=== PATIENT | male | born 1950 | race African-American/Black ===

== ENCOUNTER 2020-08-18 08:24 | Outpatient (CLI) | payer MEDICARE, SELFPAY ==
--- NOTE | 2020-09-03 14:17 | WPDHOMESLEEP ---
Sleep Study - Home Unattended Date of Study: 08/18/20 Ordering Provider: Pasquale Riggins PA-C Interpreting Provider: Emma Bobby MD [place] Sleep Study Type: Apnea Link Air Height: 1.7 m Weight: 86.183 kg Body Mass Index: 29.7 Neck Circumference (inches): 13.5 Pomaria: 5 Reason for Sleep Study daytime fatigue, shallow breathing at night, multiple nighttime awakenings Sleep History Yonathan Pineda is a 70-year-old man who frequently awakens from sleep feeling short of breath. He rarely awakens at night with heartburn, belching or coughing. He frequently snores. He rarely snores loudly enough that others complain about it. He does not have trouble sleeping with a cold. He occasionally wakes up gasping for breath during the night. He occasionally has breathing problems at night observed by others. He occasionally sweats excessively night. He occasionally notices his heart pounding or beating irregularly night. He frequently falls asleep during the day, rarely falls asleep involuntarily and never falls asleep while driving. He does not have loss of muscle tone with strong emotion. He does not have daytime difficulties due to excessive sleepiness. He rarely feels paralyzed on waking or falling asleep. He occasionally has vivid dreamlike scenes upon awakening or falling asleep. He frequently feels afraid to go to sleep. He rarely has nightmares. He occasionally remembers his dreams. He frequently has racing thoughts. He occasionally feels sad or depressed. Rarely he has anxiety. He rarely has muscular tension. He occasionally notices parts of his body jerking, he occasionally kicks at night and occasionally has crawling and aching feelings in his legs. He occasionally has leg pain at night. He rarely has morning jaw pain. He does not grind his teeth during sleep. He rarely is bothered by pain during the day, rarely awakened by pain at night. He occasionally wakes up feeling stiff in the morning. He rarely wakes up with sore achy muscles. He occasionally wakes up with pain in the neck and spine. He has palpitations, dizziness, and sexual problems. He reports a 15 lb weight loss in the last year. Normal bedtime is 10:00 p.m. falling asleep within 15 minutes waking 4-5 times at night for on average 10-20 minutes. He does not identify any particular problem that wakes him. He does not mention nocturia. He normally wakes up 5-530 a.m.. On the weekends his hours are similar although he may sleep until 6:00 a.m.. He takes naps in the afternoon. A short nap 10 or 15 minutes might be refreshing. He usually feels drowsy in the morning for 1 hour or longer. Habits: Never smoked tobacco. [facility] Past Medical History Medical History (Updated 09/03/20 @ 14:28 by Emma Bobby MD) BPH (benign prostatic hyperplasia) Erectile dysfunction Fatty liver GERD (gastroesophageal reflux disease) Hearing loss History of prostate cancer Treated with brachytherapy Hypercholesterolemia Hypertension Hypothyroidism (acquired) Pre-diabetes Pre-diabetes Vitamin D deficiency Family History Family History (Updated 09/03/20 @ 14:28 by Emma Bobby MD) Father Diabetes mellitus Mother Hypertension Son Obstructive sleep apnea Social History Social History Smoking status: Never smoker Second hand tobacco smoke exposure: No Alcohol intake: current Substance use: never Substance use type: does not use Living arrangements: with family Gender identity (if verbalized by the patient): Male Spiritual care concerns: No Medications Home Medications Medication Instructions Recorded Confirmed Type nmxdnnzl-iom-pxjyf acid 300 1 tablet PO DAILY 07/05/19 08/25/20 History mcg-lycopene 600 mcg-lutein 300 mcg tablet sildenafil 25 mg tablet 25 mg PO DAILY PRN 07/05/19 08/25/20 History atorvastatin 20 mg tablet 20 mg PO DAILY #90 tablet 11/20/1908/12
[2020-09-03 14:33] VITALS: BMI 29.7
== END 2020-08-19 07:59 | disposition home or self-care (01) ==
PROVIDERS: PCP Physician Assistant; Visit Provider Physician Assistant
DX: G47.10 Hypersomnia, unspecified (principal)
CPT/HCPCS: 95806

== ENCOUNTER → 2020-08-23 00:13 | Outpatient (CLI) | payer MEDICARE, SELFPAY ==
[2020-08-23 17:56] LABS: SARS-CoV-2 RNA PCR Negative
== END ==
PROVIDERS: PCP Physician Assistant; Visit Provider Internal Medicine Gastroenterology
DX: Z01.812 Encounter for preprocedural laboratory examination (principal); Z20.822 Contact with and (suspected) exposure to COVID-19
CPT/HCPCS: C9803; U0003; U0005

== ENCOUNTER 2020-08-27 01:16 | Day surgery (SDC) | payer MEDICARE, SELFPAY ==
[2020-08-25 10:53] VITALS: BMI 30.6
--- NOTE | 2020-08-26 13:38 | WPDANESEPPF ---
Anes - Initial Pre Proc Eval Procedure: Operation Date: 08/27/20 11:30 Proposed Procedures p Screening Colonoscopy - Hayden Zhong DO Date/Time: 08/26/20 13:38 Surgeon: Hayden Zhong DO Pre Op Diagnosis: hx of colon polyps Patient Data Age: 70 Gender: M Height: 1.68 m Weight: 86 kg Allergies Allergy/AdvReac Type Severity Reaction Status Date / Time No Known Allergies Allergy Unknown Verified 08/25/20 10:49 Home Medications Medication Instructions Recorded Confirmed Type rlprxdya-ahv-xhxpf acid 300 1 tablet PO DAILY 07/05/19 08/25/20 History mcg-lycopene 600 mcg-lutein 300 mcg tablet sildenafil 25 mg tablet 25 mg PO DAILY PRN 07/05/19 08/25/20 History atorvastatin 20 mg tablet 20 mg PO DAILY #90 tablet 11/20/19 08/25/20 Rx lisinopril 20 1 tablet PO DAILY #90 tablet 05/22/20 08/25/20 Rx mg-hydrochlorothiazide 25 mg tablet metoprolol succinate 25 mg 25 mg PO DAILY #90 tablet 05/22/20 08/27/20 Rx tablet,extended release 24 hr levothyroxine 25 mcg tablet 25 mcg PO DAILY #90 tablet 06/20/20 08/25/20 Rx metformin 500 mg tablet,extended 500 mg PO BID #180 tablet 06/20/20 08/25/20 Rx release 24 hr Patient hx anesthesia problems: none Family hx anesthesia problems: none PMFSH Past Medical History Medical History (Updated 06/20/20 @ 10:57 by Pasquale Riggins PA-C) BPH (benign prostatic hyperplasia) Erectile dysfunction Fatty liver GERD (gastroesophageal reflux disease) Hearing loss History of prostate cancer Hypercholesterolemia Hypertension Pre-diabetes Pre-diabetes Vitamin D deficiency Family History Family History Father Diabetes mellitus Mother Hypertension Social History Social History Smoking status: Never smoker Second hand tobacco smoke exposure: No Alcohol intake: current Substance use: never Substance use type: does not use Living arrangements: with family Gender identity (if verbalized by the patient): Male Spiritual care concerns: No Anes - Eval Final PreProcedure Day of Procedure 08/26/20 13:38 Patient weight: obese Heart: regular rate and rhythm Lungs: clear to auscultation and normal air movement Airway: Mallampati scale class II Neurological: alert and oriented Last oral intake: >/= 8 hours ASA classification: III Emergent: no Anesthetic plan: proceed Anesthesia type and monitoring: general GIVS and standard monitoring Informed Consent: The patient's anesthetic plan and its attendant risks and benefits were discussed with the patient/family/POA. Questions were solicited and answers provided to the satisfaction of the patient/family/POA.
[2020-08-27 10:12] VITALS: BP 159/65; PULSE 55; RESP 18; TEMP 36.1; O2SAT 98; BMI 30.8
[2020-08-27 10:34] LABS: Glucose Point of Care 104 mg/dl (65-105)
[2020-08-27] MEDS: LACTATED RINGERS 1,000 ML 150 ML IV CONT (10:42)
--- NOTE | 2020-08-27 11:51 | WPDGICN ---
GI Consult Note Consult date/time: 08/27/20 11:51 HPI: Reason for visit is colonoscopy. This very pleasant gentleman seen in consultation at request of the primary. Impression: Screening in surveillance colonoscopy. Patient's history adenomatous colon polyps. BPH. Prostatic cancer status post brachytherapy. HLD. HTN. GERD. Vitamin-D deficiency. EGD. Pre diabetes. NAFLD. Recommendation: Colonoscopy. History: This very pleasant gentleman's here for screening and surveillance colonoscopy. His history adenomatous colon polyps. GI review systems negative. Physical examination: General: very pleasant patient in no acute distress. HEENT: Head was normocephalic sclerae is clear mouth without masses neck was supple. Heart: Rate rhythm regular without S3 or S4. Lungs: CTA. Abdomen: Soft with no guarding or rigidity. Bowel sounds were active. Neurologic: Cranial nerves 2 through 12 intact. No focal defects. No clonus. Musculoskeletal system: Revealed no joint tenderness or swelling no muscle atrophy. Extremities: Reveal no significant edema. Skin: Warm and dry with normal turgor. Mental status: intact. Patient is alert and oriented. Review of Systems Review of Systems: All systems reviewed & are unremarkable except as noted in HPI and below PMFSH Past Medical History Medical History (Updated 06/20/20 @ 10:57 by Pasquale Riggins PA-C) BPH (benign prostatic hyperplasia) Erectile dysfunction Fatty liver GERD (gastroesophageal reflux disease) Hearing loss History of prostate cancer Hypercholesterolemia Hypertension Pre-diabetes Pre-diabetes Vitamin D deficiency Family History Family History Father Diabetes mellitus Mother Hypertension Social History Social History Smoking status: Never smoker Second hand tobacco smoke exposure: No Alcohol intake: current Substance use: never Substance use type: does not use Living arrangements: with family Gender identity (if verbalized by the patient): Male Spiritual care concerns: No Meds Home Medications and Allergies Home Medications Medication Instructions Recorded Confirmed Type ulcqaatd-lsd-ipcmr acid 300 1 tablet PO DAILY 07/05/19 08/25/20 History mcg-lycopene 600 mcg-lutein 300 mcg tablet sildenafil 25 mg tablet 25 mg PO DAILY PRN 07/05/19 08/25/20 History atorvastatin 20 mg tablet 20 mg PO DAILY #90 tablet 11/20/19 08/25/20 Rx lisinopril 20 1 tablet PO DAILY #90 tablet 05/22/20 08/25/20 Rx mg-hydrochlorothiazide 25 mg tablet metoprolol succinate 25 mg 25 mg PO DAILY #90 tablet 05/22/20 08/27/20 Rx tablet,extended release 24 hr levothyroxine 25 mcg tablet 25 mcg PO DAILY #90 tablet 06/20/20 08/25/20 Rx metformin 500 mg tablet,extended 500 mg PO BID #180 tablet 06/20/20 08/25/20 Rx release 24 hr Allergies Allergy/AdvReac Type Severity Reaction Status Date / Time No Known Allergies Allergy Unknown Verified 08/25/20 10:49 Vital Signs Vital Signs - 24 hr 08/27/20 10:12 Temperature 36.1 C L Pulse Rate 55 L Respiratory Rate 18 Blood Pressure 159/65 H Pulse Oximetry 98
[2020-08-27 12:15] VITALS: BP 126/75; PULSE 68; RESP 18; O2SAT 98
[2020-08-27 12:25] VITALS: BP 126/66; PULSE 51; RESP 16; O2SAT 98
[2020-08-27 12:35] VITALS: BP 124/64; PULSE 59; RESP 18; O2SAT 98
--- NOTE | 2020-08-27 12:48 | SUR.PHASEII ---
08/27/20 @ 1248 patient is ready for discharge=waiting for Dr Zhong to speak with him prior to discharge.
== END 2020-08-27 13:15 | disposition home or self-care (01) ==
PROVIDERS: PCP Physician Assistant; Visit Provider Internal Medicine Gastroenterology
PROC: 0DJD8ZZ Inspection of Lower Intestinal Tract, Via Natural or Artificial Opening Endoscopic (ICD-10-PCS; CPT 45378; principal; 2020-08-27 11:30)
DX: Z12.11 Encounter for screening for malignant neoplasm of colon (principal); K63.5 Polyp of colon; K64.8 Other hemorrhoids; I10 Essential (primary) hypertension; E78.5 Hyperlipidemia, unspecified; K21.9 Gastro-esophageal reflux disease without esophagitis; R73.03 Prediabetes; K76.0 Fatty (change of) liver, not elsewhere classified; E55.9 Vitamin D deficiency, unspecified; Z85.46 Personal history of malignant neoplasm of prostate; Z79.84 Long term (current) use of oral hypoglycemic drugs; E66.9 Obesity, unspecified; Z68.30 Body mass index [BMI] 30.0-30.9, adult
CPT/HCPCS: 45380; 82948; 88305; C9803; J2704; J7120; U0003; U0005

== ENCOUNTER 2022-07-02 10:24 | Outpatient (CLI) | payer MEDICARE, SELFPAY ==
--- NOTE | ~2022-07-02 | XR_ITS ---
EXAMINATION: XR chest 2V 07/02/2022 10:45 INDICATION: Shortness of breath and chest pain PROCEDURE: 2 view chest COMPARISON: Comparison to multiple prior studies sequentially, with oldest reviewed study dated 07/2013. FINDINGS: The lungs are clear. The cardiomediastinal silhouette is within normal limits. There are no pleural effusions. There is no pneumothorax suspected. There are calcified nodules bilaterally, consistent with chronic granulomatous disease. IMPRESSION: 1: NO ACUTE CARDIOPULMONARY DISEASE. Reviewed, dictated and finalized at location A.
== END 2022-07-02 10:25 | disposition home or self-care (01) ==
LOC: ANHIMG 10:31
PROVIDERS: PCP Family Medicine; Visit Provider Physician Assistant
DX: R06.02 Shortness of breath (principal)
CPT/HCPCS: 71046

== ENCOUNTER 2022-12-16 23:37 | Inpatient (IN) | payer MEDICARE, SELFPAY ==
--- NOTE | ~2022-12-16 | CT_ITS ---
EXAMINATION: CT abdomen pelvis w con DATE: 12/19/2022 11:29 INDICATION: Neoplastic gastric ulcer. TECHNIQUE: Computed tomography (CT) of the abdomen and pelvis was performed with 100 mL Omnipaque 350 intravenous contrast. Automated exposure control and iterative reconstruction technique were employe d. The dose-length product was 860.63 mGy-cm. COMPARISON: None. FINDINGS: The visualized portions of the lung bases demonstrate mild atelectasis. Calcified pulmonary nodules and calcified hilar lymph nodes are consistent with old granulomatous disease. No pleural ef fusion. The heart size is normal. There are coronary artery calcifications. No pericardial effusion. Calcifications in the liver and spleen are consistent with old granulomatous disease. The gallbladder is contracted. The pancreas and adrenal glands are normal. There is a 1.8 cm mass of the left kidney containing fat, consistent with an angiomyolipoma. There are cysts in the kidneys measuring up to 3. 0 cm on the left. There is calcified atherosclerosis of the aorta and many of the other arteries. The prostate is mildly enlarged. There are brachytherapy seeds in the prostate. There is diverticulosis of the colon without evidence of diverticulitis. There are no dilated loops of bowel. The appendix is normal. There is a 6.2 cm mass in the body and fundus of the stomach. There is mild thoracic and lum bar spondylosis. IMPRESSION: 1. 6.2 cm mass in the body and fundus of the stomach, which may be adenocarcinoma or gastrointestinal stromal tumor. Correlate with biopsy results. Reviewed, dictated and finalized at location A. IMPRESSION: 1. 6.2 cm mass in the body and fundus of the stomach, which may be adenocarcino ma or gastrointestinal stromal tumor. Correlate with biopsy results.
[2022-12-16 23:46] VITALS: BP 118/80; PULSE 66; O2SAT 100
[2022-12-16 23:47] VITALS: PULSE 66; O2SAT 100
[2022-12-17] VITALS (61 sets, daily range): BP systolic 91–141; BP diastolic 47–74; PULSE 36–94; RESP 14–24; TEMP 36.4–36.8; O2SAT 97–100
--- NOTE | 2022-12-17 00:06 | ECG_ITS ---
Measurements Intervals [place] Rate: 66 P: 43 LA: 169 QRS: 16 QRSD: 92 T: 23 QT: 408 QTc: 428 Interpretive Statements SINUS RHYTHM NO PREVIOUS ECG AVAILABLE FOR COMPARISON Electronically Signed On 12-17-2022 14:23:00 CDT by Modesto Perez M.D.
[2022-12-17 00:18] LABS: Basophils Percent Auto 0.4 % (0.2-1.2); Eosinophils Absolute Auto 0.1 K/mm3 (0-0.3); Eosinophils Percent Auto 1.1 % (0-4.4); Hematocrit 36.7 % (42.0-52.0); Hemoglobin 11.4 g/dL (14.0-18.0); Immature Granulocyte Absolute 0.07 K/mm3 (0.00-0.031); Immature Granulocyte Percent A 0.7 % (0-0.5); Lymphocytes Absolute Auto 3.01 K/mm3 (0.9-3.2); Lymphocytes Percent Auto 28.2 % (18.3-44.2); Mean Corpuscular HGB Conc 31.1 g/dl (32-36); Mean Corpuscular Volume 86.8 fl (80-100); Mean Platelet Volume 12.4 fl (7.4-10.4); Monocytes Absolute Auto 0.7 K/mm3 (0.1-0.6); Monocytes Percent Auto 6.5 % (2.6-8.5); Neutrophils Absolute Auto 6.8 K/mm3 (1.3-6.7); Neutrophils Percent Auto 63.1 % (45.5-73.1); Platelet Count Result 277 k/mm3 (150-375); Red Blood Count 4.23 M/mm3 (4.6-6.20); Red Cell Distribution Width 14.7 % (11.5-14.5); White Blood Count 10.7 K/mm3 (4.5-10.0)
--- NOTE | 2022-12-17 00:19 | ED.GIBLEED ---
HPI - GI Bleed General Chief complaint: GI Bleed <BROCK Ohara Last Filed: 12/20/22 09:18> Stated complaint: gi bleed <BROCK Ohara Last Filed: 12/20/22 09:18> Time Seen by Provider: 12/17/22 00:06 <BROCK Ohara Last Filed: 12/20/22 09:18> Source: patient <BROCK Ohara Last Filed: 12/20/22 09:18> Mode of arrival: ambulatory <BROCK Ohara Last Filed: 12/20/22 09:18> Limitations: no limitations <BROCK Ohara Last Filed: 12/20/22 09:18> History of Present Illness HPI Narrative: This is a 72 year old male that presents to the ER for coffee ground emesis tonight. Reports history of previous similar episode when he was younger due to ulcers. He no longer takes any medications for ulcers. He is no on any blood thinners. Denies abdominal pain. <BROCK Ohara Last Filed: 12/20/22 09:18> Related Data Home medications: Home Medications Medication Instructions Recorded Confirmed wbojsyld-zr-yugub 300 mcg-K 60 1 tablet PO DAILY 07/05/19 12/17/22 mcg-lycop 600 mcg-lutein 300 mcg tablet (Men 50 Plus Multivitamin) sildenafil 25 mg tablet 25 mg PO DAILY PRN Sexual Activity 07/05/19 12/17/22 albuterol sulfate 90 mcg/actuation 1 inh inhalation Q4H PRN chest 12/17/22 12/17/22 aerosol inhaler tightness <BROCK Ohara Last Filed: 12/20/22 09:18> Allergies/Adverse reactions: Allergies Allergy/AdvReac Type Severity Reaction Status Date / Time No Known Allergies Allergy Unknown Verified 12/17/22 08:22 <BROCK Ohara Last Filed: 12/20/22 09:18> Review of Systems Review of Systems: CONSTITUTIONAL: Denies fever GASTROINTESTINAL: Reports nausea and vomiting. Denies abdominal pain <BROCK Ohara Last Filed: 12/20/22 09:18> All systems reviewed & are unremarkable except as noted in HPI and below <Odilia Krishna PA-C - Last Filed: 12/20/22 09:18> [facility] Past Medical History Medical History: Medical History BPH (benign prostatic hyperplasia) Erectile dysfunction Fatty liver GERD (gastroesophageal reflux disease) Hearing loss History of prostate cancer Treated with brachytherapy Hypercholesterolemia Hypertension Hypothyroidism (acquired) Pre-diabetes Pre-diabetes Vitamin D deficiency <Odilia Krishna PA-C - Last Filed: 12/20/22 09:18> Family History Family History: Family History Father Diabetes mellitus Mother Hypertension Son Obstructive sleep apnea <Odilia Krishna PA-C - Last Filed: 12/20/22 09:18> Social History Social History: Social History Social History: Lives at home with , she is ARGELIA. They have kids and grandkids locally. Smoking status: Never smoker Second hand tobacco smoke exposure: No Alcohol intake: never Alcohol use details: consumes 1 beer yearly Substance use: never Substance use type: does not use Lack of Transportation: No Lack of Food: Never True Current Housing: I Have Housing Concerned About Future Housing: No Difficulty Paying Gas/Electric Bills: No Difficulty Paying for Meds: No Currently Unemployed: No Education: Bachelor's Degree Difficulty w/ Childcare or Family Care: No Living arrangements: with family Occupation/Education: retired Gender identity (if verbalized by the patient): Male Spiritual care concerns: No <Odilia Krishna PA-C - Last Filed: 12/20/22 09:18> Exam Narrative: GENERAL: Well-appearing, well-nourished, and in no acute distress. HEAD: Normocephalic, atraumatic. EYES: EOMI. CHEST: Clear to auscultation. No respiratory distress. No wheezes rales or rhonchi HEART: Regular rate and rhythm. No murmur heard. Normal peripheral pulses. ABDOMEN: Soft, nontender, nondisten
[2022-12-17 00:31] LABS: INR 1.1; Prothrombin Time 14.6 Seconds (11.1-14.7)
[2022-12-17 00:32] LABS: Partial Thromboplastin Time 28.3 SECONDS (22.3-36.8)
[2022-12-17] MEDS: PANTOPRAZOLE SODIUM IV 40 MG VIAL 80 MG IV PUSH (00:32)
[2022-12-17] MEDS: ONDANSETRON INJ 4 MG/2 ML VIAL IV PUSH (00:33)
[2022-12-17 00:52] LABS: Alanine Aminotransferase 24 U/L (6-50); Albumin Level 4.2 g/dL (3.5-5.1); Alkaline Phosphatase 80 U/L (38-126); Anion Gap 13 mmol/L (8-16); Aspartate Amino Transferase 32 U/L (17-59); Bilirubin,Total 0.6 mg/dL (0.2-1.3); Blood Urea Nitrogen 27 mg/dL (9-20); Calcium 9.2 mg/dL (8.4-10.2); Carbon Dioxide 23 mmol/L (22-30); Chloride 100 mmol/L (98-107); Estimated CRCL calculation 57 ml/min; Estimated Glomerular Filt Rate > 60; Glucose 170 mg/dL (65-110); Potassium 3.5 mmol/L (3.4-5.0); Sodium 136 mmol/L (137-145)
[2022-12-17] MEDS: PROCHLORPERAZINE EDISYLATE 10 MG/2 ML VIAL IV PUSH (01:44)
[2022-12-17] MEDS: SODIUM CHLORIDE 0.9% IV 1,000 ML 999 ML IV CONT (01:44)
[2022-12-17 04:35] LABS: Hematocrit 32.6 % (42.0-52.0); Hemoglobin 10.2 g/dL (14.0-18.0)
--- NOTE | 2022-12-17 07:10 | WPDGICN ---
Assessment and Plan Assessment and plan (1) Acute upper GI bleed: Code(s): K92.2 - Gastrointestinal hemorrhage, unspecified Status: Acute Assessment and Plan: because of hematemesis he likely has peptic ulcer disease or other bleeding problems in the esophagus or stomach. EGD will be done later today (2) GERD (gastroesophageal reflux disease): Code(s): K21.9 - Gastro-esophageal reflux disease without esophagitis Status: Acute Assessment and Plan: he had been on Tagamet for while years ago but is not on any acid reducing medications now. He occasionally gets heartburn GI Consult Note Consult date/time: 12/17/22 07:10 HPI: Yonathan Pineda is a 72 year old male Came in last night because of hematemesis. He states that he had in her LEs today afternoon about 4. He took his medications. He went to bed and woke up feeling distended. He had no pain. Then he vomited and noted that it looked like undigested food and coffee-ground material. He added that he has had dark stools almost black for the last year 3 days. She has a history of having an ulcer when he was in his 30s and recalls taking Tagamet for about 10 years. He is not anticoagulated. He had a colonoscopy here about 2 years ago which was unremarkable per Review of Systems Review of Systems: All systems reviewed & are unremarkable except as noted in HPI and below PMFSH Past Medical History Medical History BPH (benign prostatic hyperplasia) Erectile dysfunction Fatty liver GERD (gastroesophageal reflux disease) Hearing loss History of prostate cancer Treated with brachytherapy Hypercholesterolemia Hypertension Hypothyroidism (acquired) Pre-diabetes Pre-diabetes Vitamin D deficiency Family History Family History Father Diabetes mellitus Mother Hypertension Son Obstructive sleep apnea Social History Social History Social History: Lives at home with , she is POA. They have kids and grandkids locally. Smoking status: Never smoker Second hand tobacco smoke exposure: No Alcohol intake: current Alcohol use details: consumes 1 beer yearly Substance use: never Substance use type: does not use Lack of Transportation: No Lack of Food: Never True Current Housing: I Have Housing Concerned About Future Housing: No Difficulty Paying Gas/Electric Bills: No Difficulty Paying for Meds: No Currently Unemployed: No Difficulty w/ Childcare or Family Care: No Living arrangements: with family Occupation/Education: retired Gender identity (if verbalized by the patient): Male Spiritual care concerns: No Meds Home Medications and Allergies Home Medications Medication Instructions Recorded Confirmed Type oxoxjfne-en-uwcgj 300 mcg-K 60 1 tablet PO DAILY 07/05/19 07/02/22 History mcg-lycop 600 mcg-lutein 300 mcg tablet (Men 50 Plus Multivitamin) sildenafil 25 mg tablet 25 mg PO DAILY PRN Sexual Activity 07/05/19 07/02/22 History lisinopril 20 See Rx Instructions .Route 05/02/22 07/02/22 Rx mg-hydrochlorothiazide 25 mg tablet .COMPLEX #90 tabs metoprolol succinate 25 mg See Rx Instructions .Route 05/02/22 07/02/22 Rx tablet,extended release 24 hr .COMPLEX #90 tabs albuterol sulfate 90 mcg/actuation 1 inh inhalation Q4H #8.5 grams 08/08/22 Rx aerosol inhaler atorvastatin 20 mg tablet See Rx Instructions .Route 09/29/22 Rx .COMPLEX #90 tabs levothyroxine 25 mcg tablet See Rx Instructions .Route 11/08/22 Rx .COMPLEX #100 tabs metformin 500 mg tablet,extended See Rx Instructions .Route 11/08/22 Rx release 24 hr .COMPLEX #200 tabs Allergies Allergy/AdvReac Type Severity Reaction Status Date / Time No Known Allergies Allergy Unknown Verified 07/02/22 09:11 Vital Signs Vital Signs - 24 h
--- NOTE | 2022-12-17 07:45 | ADMGEN ---
This patient, Yonathan Pineda, was admitted to 2 Medical Room 242-. Patient/family oriented to hospital policies and general routines including ID bracelet, bed and alarms, visiting hours, pain management, procedures, bathroom and other care routines, personal items, smoking policy, room service/diet, and visiting hours. Information on how to activate the Rapid Response Team has been discussed. Patient/Family are encouraged to report perceived risks to care and to ask questions if they do not understand what they are told or what they should do.
[2022-12-17] MEDS: PANTOPRAZOLE SODIUM IV 40 MG VIAL IV PUSH ×2 (09:05→20:28)
--- NOTE | 2022-12-17 09:25 | PM.IMHP ---
H&P: HPI History of Present Illness Date/Time: 12/17/22 09:25 Chief Complaint: Coffee-ground emesis Narrative: 72-year-old male with history of peptic ulcer disease in his 30s, prediabetes, GERD, hypertension and hypothyroidism is presenting with coffee-ground emesis and severe nausea. Patient states he feels fine now, but yesterday he had acute onset of projectile vomiting of coffee grounds. He states the last time this happened to him was in his 30s and he was found to have a bleeding ulcer that time. He has not had any issues since then. No chest pain or shortness of breath. No nausea, vomiting or diarrhea. No fevers or chills. Gastroenterology has been consulted and is recommending an EGD. Review of Systems Review of Systems: 12 point review of systems was assessed and was negative except as noted in the HPI [facility] Past Medical History Medical History BPH (benign prostatic hyperplasia) Erectile dysfunction Fatty liver GERD (gastroesophageal reflux disease) Hearing loss History of prostate cancer Treated with brachytherapy Hypercholesterolemia Hypertension Hypothyroidism (acquired) Pre-diabetes Pre-diabetes Vitamin D deficiency Family History Family History Father Diabetes mellitus Mother Hypertension Son Obstructive sleep apnea Social History Social History Social History: Lives at home with , she is ERAA. They have kids and grandkids locally. Smoking status: Never smoker Second hand tobacco smoke exposure: No Alcohol intake: never Alcohol use details: consumes 1 beer yearly Substance use: never Substance use type: does not use Lack of Transportation: No Lack of Food: Never True Current Housing: I Have Housing Concerned About Future Housing: No Difficulty Paying Gas/Electric Bills: No Difficulty Paying for Meds: No Currently Unemployed: No Education: Bachelor's Degree Difficulty w/ Childcare or Family Care: No Living arrangements: with family Occupation/Education: retired Gender identity (if verbalized by the patient): Male Spiritual care concerns: No Meds Home Medications and Allergies Home Medications Medication Instructions Recorded Confirmed Type qcnszwug-jr-elnjs 300 mcg-K 60 1 tablet PO DAILY 07/05/19 12/17/22 History mcg-lycop 600 mcg-lutein 300 mcg tablet (Men 50 Plus Multivitamin) sildenafil 25 mg tablet 25 mg PO DAILY PRN Sexual Activity 07/05/19 12/17/22 History lisinopril 20 See Rx Instructions .Route 05/02/22 12/17/22 Rx mg-hydrochlorothiazide 25 mg tablet .COMPLEX #90 tabs metoprolol succinate 25 mg See Rx Instructions .Route 05/02/22 12/17/22 Rx tablet,extended release 24 hr .COMPLEX #90 tabs atorvastatin 20 mg tablet See Rx Instructions .Route 09/29/22 12/17/22 Rx .COMPLEX #90 tabs levothyroxine 25 mcg tablet See Rx Instructions .Route 11/08/22 12/17/22 Rx .COMPLEX #100 tabs metformin 500 mg tablet,extended See Rx Instructions .Route 11/08/22 12/17/22 Rx release 24 hr .COMPLEX #200 tabs albuterol sulfate 90 mcg/actuation 1 inh inhalation Q4H PRN chest 12/17/22 12/17/22 History aerosol inhaler tightness Allergies Allergy/AdvReac Type Severity Reaction Status Date / Time No Known Allergies Allergy Unknown Verified 12/17/22 08:22 Vital Signs Vital Signs - 24 hr 12/17/22 00:00 12/16/22 23:46 12/16/22 23:47 Temperature 97.7 F Pulse Rate 53 L 66 66 Respiratory Rate 16 Blood Pressure 118/80 Pulse Oximetry 98 100 100 Oxygen Delivery Room Air 12/17/22 00:00 12/17/22 00:01 12/17/22 00:15 Temperature Pulse Rate 36 L 56 L 64 Respiratory Rate 19 Blood Pressure 106/60 Pulse Oximetry 100 100 100 Oxygen Delivery 12/17/22 00:30 12/17/22 00:31 12/17/22 00:32 Temperature Pulse Rate 68 70 63 Respir
[2022-12-17 09:56] LABS: Hematocrit 35.4 % (42.0-52.0); Hemoglobin 10.8 g/dL (14.0-18.0)
[2022-12-17 14:20] LABS: Glucose Point of Care 89 mg/dl (65-105)
--- NOTE | 2022-12-17 14:20 | PC.NURSE ---
To GI Lab via wheelchair.
[2022-12-17] MEDS: LACTATED RINGERS 1,000 ML 150 ML IV CONT (14:28)
--- NOTE | 2022-12-17 14:40 | PC.NURSE ---
To GI Lab via wheelchair.
--- NOTE | 2022-12-17 14:44 | WPDANESEPPF ---
Anes - Initial Pre Proc Eval Procedure: Operation Date: 12/17/22 15:15 Proposed Procedures p Esophagogastroduodenoscopy - John Larsen MD Date/Time: 12/17/22 14:44 Surgeon: Beatriz Layton DO Pre Op Diagnosis: Upper GI Bleed Patient Data Age: 72 Gender: M Height: 1.7 m Weight: 88.6 kg Last Vital Signs Temp 97.9 F 12/17/22 14:20 Pulse 70 12/17/22 14:20 Resp 18 12/17/22 14:20 BP 137/60 12/17/22 14:20 Pulse Ox 100 12/17/22 14:20 O2 Del Method Room Air 12/17/22 14:20 Allergies Allergy/AdvReac Type Severity Reaction Status Date / Time No Known Allergies Allergy Unknown Verified 12/17/22 08:22 Home Medications Medication Instructions Recorded Confirmed Type mfvsjten-ct-[id number] 300 mcg-K 60 1 tablet PO DAILY 07/05/19 12/17/22 History mcg-lycop 600 mcg-lutein 300 mcg tablet (Men 50 Plus Multivitamin) sildenafil 25 mg tablet 25 mg PO DAILY PRN Sexual Activity 07/05/19 12/17/22 History lisinopril 20 See Rx Instructions .Route 05/02/22 12/17/22 Rx mg-hydrochlorothiazide 25 mg tablet .COMPLEX #90 tabs metoprolol succinate 25 mg See Rx Instructions .Route 05/02/22 12/17/22 Rx tablet,extended release 24 hr .COMPLEX #90 tabs atorvastatin 20 mg tablet See Rx Instructions .Route 09/29/22 12/17/22 Rx .COMPLEX #90 tabs levothyroxine 25 mcg tablet See Rx Instructions .Route 11/08/22 12/17/22 Rx .COMPLEX #100 tabs metformin 500 mg tablet,extended See Rx Instructions .Route 11/08/22 12/17/22 Rx release 24 hr .COMPLEX #200 tabs albuterol sulfate 90 mcg/actuation 1 inh inhalation Q4H PRN chest 12/17/22 12/17/22 History aerosol inhaler tightness Laboratory Tests 12/16/22 12/17/22 12/17/22 23:55 04:26 09:43 WBC 10.7 H K/mm3 (4.5-10.0) RBC 4.23 L M/mm3 (4.6-6.20) Hgb 11.4 L g/dL 10.2 L g/dL 10.8 L g/dL (14.0-18.0) (14.0-18.0) (14.0-18.0) Hct 36.7 L % 32.6 L % 35.4 L % (42.0-52.0) (42.0-52.0) (42.0-52.0) MCV 86.8 fl (80-100) MCH 27.0 pg (26-34) MCHC 31.1 L g/dl (32-36) RDW 14.7 H % (11.5-14.5) Plt Count 277 k/mm3 (150-375) MPV 12.4 H fl (7.4-10.4) Immature Gran % (Auto) 0.7 H % (0-0.5) Neut % (Auto) 63.1 % (45.5-73.1) Lymph % (Auto) 28.2 % (18.3-44.2) [place] % (Auto) 6.5 % (2.6-8.5) Eos % (Auto) 1.1 % (0-4.4) Baso % (Auto) 0.4 % (0.2-1.2) Lymph # (Auto) 3.01 K/mm3 (0.9-3.2) [place] # (Auto) 0.7 H K/mm3 (0.1-0.6) Eos # (Auto) 0.1 K/mm3 (0-0.3) Baso # (Auto) 0.0 K/mm3 (0.0-0.1) Abs Immat Gran (auto) 0.07 H K/mm3 (0.00-0.031) Absolute Neuts (auto) 6.8 H K/mm3 (1.3-6.7) Absolute Nucleated RBC 0.0 K/mm3 (0.0-0.012) Nucleated RBC % 0.0 % (0.0-0.2) PT 14.6 Seconds (11.1-14.7) INR 1.1 APTT 28.3 SECONDS (22.3-36.8) Sodium 136 L mmol/L (137-145) Potassium 3.5 mmol/L (3.4-5.0) Chloride 100 mmol/L (98-107) Carbon Dioxide 23 mmol/L (22-30) Anion Gap 13 mmol/L (8-16) BUN 27 H mg/dL (9-20) Creatinine 1.10 mg/dL (0.7-1.3) Estim Creat Clear Calc 57 ml/min Estimated GFR > 60 (59 - ) Glucose 170 H mg/dL (65-110) POC Capillary Glucose Calcium 9.2 mg/dL (8.4-10.2) Total Bilirubin 0.6 mg/dL (0.2-1.3) AST 32 U/L (17-59) ALT 24 U/L (6-50) Alkaline Phosphatase 80 U/L (38-126) Total Protein 8.0 g/dL (6.3-8.2) Albumin 4.2 g/dL (3.5-5.1) Blood Type A Positive Antibody Screen Negative 12/17/22 14:16 WBC RBC Hgb Hct MCV MCH MCHC RDW Plt Count MPV Immature Gran % (Auto)
--- NOTE | 2022-12-17 15:27 | SUR.OPER ---
H. Pylori positive. Dr. Larsen aware.
[2022-12-17] MEDS: EPINEPHrine INJ 1 MG/10 ML SYRINGE 0.2 MG XX (15:29)
--- NOTE | 2022-12-17 15:50 | SUR.PHASEII ---
Dr. Larsen aware of positive H. Pylori result.
[2022-12-17] MEDS: METOPROLOL SUCCINATE EXT REL 25 MG TABCR BY MOUTH (16:30)
[2022-12-17 19:27] LABS: Hematocrit 33.3 % (42.0-52.0); Hemoglobin 10.3 g/dL (14.0-18.0)
[2022-12-17] MEDS: ATORVASTATIN 20 MG TABLET BY MOUTH (20:28)
[2022-12-18] VITALS (9 sets, daily range): BP systolic 122–143; BP diastolic 52–55; PULSE 51–84; RESP 16–17; TEMP 36.4–36.8; O2SAT 100
[2022-12-18] MEDS: LEVOTHYROXINE SODIUM 25 MCG TABLET BY MOUTH (06:05)
--- NOTE | 2022-12-18 08:33 | WPDGIPROGNO ---
Progress Note: A&P Assessment and Plan (1) Acute upper GI bleed: Code(s): K92.2 - Gastrointestinal hemorrhage, unspecified Status: Acute Assessment and Plan: because of hematemesis he likely has peptic ulcer disease or other bleeding problems in the esophagus or stomach. EGD will be done later today 12/18/2022 no further bleeding. I told that there is a strong possibility of rebleeding. Usually it is the 1st 48 hours where that is most likely. I will start him on full liquids. Will obtain surgical consult, because with that deep base there was a possibility of perforation and also rebleeding. (2) GERD (gastroesophageal reflux disease): Code(s): K21.9 - Gastro-esophageal reflux disease without esophagitis Status: Acute Assessment and Plan: he had been on Tagamet for while years ago but is not on any acid reducing medications now. He occasionally gets heartburn Plan Advanced to full liquids, Watch for for rebleeding. follow H&H Surgery consult Subjective Date/time seen: 12/18/22 08:33 He has no complaints today. No bowel movement since admission. No vomiting or nausea. We discussed results of his EGD which revealed a large deeply created ulcer in the proximal stomach. I told that took biopsies to rule out malignancy, which I believe is a strong possibility Exam Const: General: cooperative and healthy appearing Orientation/consciousness: patient oriented x3 HENMT: Head: normal to inspection Ears: hearing grossly normal bilaterally Mouth: Yes Normal oral and palatal mucosa present Eyes: General: appearance normal, both eyes and all related structures Neck: Neck: normal visual inspection Chest: Chest palpation & inspection: normal inspection of the chest Resp: Effort & Inspection: normal respiratory effort Auscultation: clear to auscultation bilaterally Cardio: Rate: regular rate Rhythm: regular rhythm GI: Inspection: normal to inspection Auscultation: normal bowel sounds Skin: General skin exam: normal color and no jaundice Neuro: General: patient oriented x3 Speech: normal speech Objective Data Vital Signs Vital Signs: Vital Signs - 24 hr 12/17/22 09:29 12/17/22 12:01 12/17/22 14:20 Temperature 36.6 C Pulse Rate 57 L 74 70 Respiratory Rate 18 Blood Pressure 137/60 Pulse Oximetry 100 Oxygen Delivery Room Air 12/17/22 15:28 12/17/22 15:38 12/17/22 15:48 Temperature Pulse Rate 93 84 75 Respiratory Rate 24 H 22 H 18 Blood Pressure 111/48 L 134/65 141/74 H Pulse Oximetry 100 100 100 Oxygen Delivery Room Air Room Air Room Air 12/17/22 16:03 12/17/22 16:30 12/17/22 16:00 Temperature 36.4 C L Pulse Rate 59 L 59 L 63 Respiratory Rate 16 Blood Pressure 139/49 L Pulse Oximetry 100 Oxygen Delivery 12/17/22 19:34 12/17/22 20:00 12/18/22 00:04 Temperature 36.4 C Pulse Rate 64 61 51 L Respiratory Rate 17 Blood Pressure 140/56 L Pulse Oximetry 100 Oxygen Delivery 12/18/22 04:00 12/18/22 05:18 Temperature 36.4 C L Pulse Rate 53 L 72 Respiratory Rate 17 Blood Pressure 143/55 H Pulse Oximetry 100 Oxygen Delivery Intake/Output Intake/Output: Intake & Output 12/15/22 12/16/22 12/17/22 12/18/22 23:59 23:59 23:59 23:59 Intake Total 1050 Balance 1050 Meds/Results Medications: Active Medications Generic Name Dose Route Start Last Admin Trade Name Freq PRN Reason Stop Dose Admin Albuterol 1 puff 12/17/22 14:33 Albuterol Sulfate (*Sp) Aerosol 1 Puff INHALATION Q4HRT PRN chest tightness Atorvastatin Calcium 20 mg 12/17/22 21:00 12/17/22 20:28 Atorvastatin 20 Mg Tablet BY MOUTH 20 mg HS [facility] Administration Levothyroxine Sodium 25 mcg 12/18/22 06:30 12/18/22 06:05 Levothyroxine Sodium 25 Mcg Tablet BY MOUTH 25 mcg DAILY@0630 ALFREDO Administration Metoprolol Succinate 25 mg 12/17/22 15:00 12/17/22 16:30 Metoprolol Succinate Ext Re
[2022-12-18] MEDS: METOPROLOL SUCCINATE EXT REL 25 MG TABCR BY MOUTH (08:57)
[2022-12-18] MEDS: MULTIVITAMINS /C LUTEIN (CENTRUM SILVER) TABLET *BKC 1 TAB PO (08:57)
[2022-12-18] MEDS: PANTOPRAZOLE SODIUM IV 40 MG VIAL IV PUSH ×2 (09:01→20:42)
[2022-12-18 09:47] LABS: Basophils Percent Auto 0.4 % (0.2-1.2); Eosinophils Absolute Auto 0.1 K/mm3 (0-0.3); Hematocrit 33.3 % (42.0-52.0); Hemoglobin 10.4 g/dL (14.0-18.0); Immature Granulocyte Absolute 0.03 K/mm3 (0.00-0.031); Immature Granulocyte Percent A 0.4 % (0-0.5); Lymphocytes Absolute Auto 1.83 K/mm3 (0.9-3.2); Lymphocytes Percent Auto 27.4 % (18.3-44.2); Mean Corpuscular HGB Conc 31.2 g/dl (32-36); Mean Corpuscular Volume 86.5 fl (80-100); Mean Platelet Volume 12.6 fl (7.4-10.4); Monocytes Absolute Auto 0.5 K/mm3 (0.1-0.6); Monocytes Percent Auto 7.2 % (2.6-8.5); Neutrophils Absolute Auto 4.2 K/mm3 (1.3-6.7); Neutrophils Percent Auto 63.6 % (45.5-73.1); Platelet Count Result 223 k/mm3 (150-375); Red Blood Count 3.85 M/mm3 (4.6-6.20); Red Cell Distribution Width 14.8 % (11.5-14.5); White Blood Count 6.7 K/mm3 (4.5-10.0)
[2022-12-18 09:49] LABS: Alanine Aminotransferase 26 U/L (6-50); Albumin Level 4.3 g/dL (3.5-5.1); Alkaline Phosphatase 101 U/L (38-126); Anion Gap 10 mmol/L (8-16); Aspartate Amino Transferase 27 U/L (17-59); Bilirubin,Total 0.5 mg/dL (0.2-1.3); Blood Urea Nitrogen 20 mg/dL (9-20); Calcium 9.5 mg/dL (8.4-10.2); Carbon Dioxide 24 mmol/L (22-30); Chloride 105 mmol/L (98-107); Estimated CRCL calculation 63 ml/min; Estimated Glomerular Filt Rate > 60; Glucose 100 mg/dL (65-110); Potassium 4.1 mmol/L (3.4-5.0); Sodium 139 mmol/L (137-145)
--- NOTE | 2022-12-18 11:09 | PM.IMPN ---
Progress Note: A&P Assessment and Plan (1) Acute upper GI bleed: Code(s): K92.2 - Gastrointestinal hemorrhage, unspecified Status: Acute Assessment and Plan: Monitor hemoglobin, ADAT, ppi, IV fluids Appreciate GI consult, EGD showed gastric ulcer concerning for perforation GI recommending PPI b.i.d., follow-up outpatient for biopsy General surgery being consulted due to severity of fundal ulceration and concern for perforation (2) Anemia: Qualifiers: Anemia type: unspecified type Qualified Code(s): D64.9 - Anemia, unspecified Code(s): D64.9 - Anemia, unspecified Status: Acute Assessment and Plan: Monitor hemoglobin closely (3) Hypothyroidism (acquired): Code(s): E03.9 - Hypothyroidism, unspecified Status: Acute Assessment and Plan: TSH wnl, continue levothyroxine (4) Type 2 diabetes mellitus with hyperglycemia: Code(s): E11.65 - Type 2 diabetes mellitus with hyperglycemia Status: Acute Assessment and Plan: Accu-Cheks, sliding scale insulin Blood glucose reviewed 12/18 (5) Primary hypertension: Code(s): I10 - Essential (primary) hypertension Status: Acute Assessment and Plan: Blood pressure reviewed 12/18 (6) Hyperlipidemia: Qualifiers: Hyperlipidemia type: mixed hyperlipidemia Qualified Code(s): E78.2 - Mixed hyperlipidemia Code(s): E78.5 - Hyperlipidemia, unspecified Status: Acute Assessment and Plan: Continue statin (7) GERD (gastroesophageal reflux disease): Code(s): K21.9 - Gastro-esophageal reflux disease without esophagitis Status: Acute Assessment and Plan: PPI BID Plan DVT prophylaxis with SCDs GI prophylaxis PPI Code status full code Subjective Date/time seen: 12/18/22 11:09 Interval history: 72-year-old male with history of peptic ulcer disease in his 30s, prediabetes, GERD, hypertension and hypothyroidism is presenting with coffee-ground emesis and severe nausea found to have a gastric ulcer. No overnight events noted. No chest pain or shortness of breath. No nausea, vomiting or diarrhea. No fevers or chills. Review of Systems Review of Systems: 12 point review of systems was assessed and was negative except as noted in the HPI Exam Narrative: General: No acute distress, alert and oriented per baseline HEENT: Atraumatic, normocephalic, mucous membranes moist CV: Regular rate and rhythm, S1, S2 Lungs: Clear to auscultation bilaterally, no rales or crackles noted, no wheezes, good air entry Abdomen: Soft, nontender, nondistended Extremities: Normal to inspection Skin: No rashes noted, no lesions or wounds seen Psych: Euthymic, normal affect Objective Data Vital Signs Vital Signs: Vital Signs - 24 hr 12/17/22 12:01 12/17/22 14:20 12/17/22 15:28 Temperature 97.9 F Pulse Rate 74 70 93 Respiratory Rate 18 24 H Blood Pressure 137/60 111/48 L Pulse Oximetry 100 100 Oxygen Delivery Room Air Room Air 12/17/22 15:38 12/17/22 15:48 12/17/22 16:03 Temperature Pulse Rate 84 75 59 L Respiratory Rate 22 H 18 Blood Pressure 134/65 141/74 H Pulse Oximetry 100 100 Oxygen Delivery Room Air Room Air 12/17/22 16:30 12/17/22 16:00 12/17/22 19:34 Temperature 97.5 F L 97.6 F Pulse Rate 59 L 63 64 Respiratory Rate 16 17 Blood Pressure 139/49 L 140/56 L Pulse Oximetry 100 100 Oxygen Delivery 12/17/22 20:00 12/18/22 00:04 12/18/22 04:00 Temperature Pulse Rate 61 51 L 53 L Respiratory Rate Blood Pressure Pulse Oximetry Oxygen Delivery 12/18/22 05:18 12/18/22 08:57 Temperature 97.5 F L Pulse Rate 72 66 Respiratory Rate 17 Blood Pressure 143/55 H Pulse Oximetry 100 Oxygen Delivery Intake/Output Intake/Output: Intake & Output 12/15/22 12/16/22 12/17/22 12/18/22 23:59 23:59 23:59 23:59 Intake Total 1050 Bal
[2022-12-18] MEDS: SUCRALFATE SUSP 100 MG/ML 10 ML UDC 1000 MG PO ×3 (11:57→20:42)
--- NOTE | 2022-12-18 12:19 | PM.CNGS ---
Assessment and Plan Assessment and plan (1) Gastric ulcer with hemorrhage: Qualifiers: Gastric ulcer chronicity: acute Qualified Code(s): K25.0 - Acute gastric ulcer with hemorrhage Code(s): K25.4 - Chronic or unspecified gastric ulcer with hemorrhage Status: Acute Assessment and Plan: I have reviewed the EGD report and evaluated the patient. He has evidence of a bleeding gastric ulcer in the fundus, but does not appear to have any signs active bleeding at this time. His hemoglobin and hematocrit have remained stable throughout the last 2 days. Patient is currently on Protonix 40 mg twice daily. I will also add sucralfate 1000 mg a.c. HS. Discussed with patient that in the event that he has severe recurrent bleeding he might require surgical intervention, but at this current time he does not have any signs of requiring this. Will continue to follow with patient for any status changes. (2) Anemia: Qualifiers: Anemia type: unspecified type Qualified Code(s): D64.9 - Anemia, unspecified Code(s): D64.9 - Anemia, unspecified Status: Acute (3) GERD (gastroesophageal reflux disease): Code(s): K21.9 - Gastro-esophageal reflux disease without esophagitis Status: Acute History of Present Illness Consult details Consult date: 12/18/22 Reason for consult: other (Gastric ulcer) Requesting physician: John Larsen MD Narrative: This is a 72-year-old man who I am asked to see for a complicated gastric ulcer. The patient presented several days ago with hematemesis and underwent EGD yesterday which showed evidence of a bleeding gastric ulcer. Bleeding was controlled with epinephrine and cauterization. Biopsies were also taken of this region. He has not had any more episodes of hematemesis but has also not had a bowel movement since arriving. He denies any current abdominal pain. Hemoglobin has been stable for the past several days. Patient denies any prior history of NSAID use, heavy alcohol use, or tobacco use. He is not on any blood thinners. He does report a history of bleeding ulcer about 40 or 45 years ago and this was treated with Tagamet. Review of Systems Review of Systems: All systems reviewed & are unremarkable except as noted in HPI and below Eyes: Eyes: Denies change in vision ENT: Denies hearing loss, Denies neck pain and Denies sore throat Cardiovascular: Cardiovascular: Denies chest pain and Denies dyspnea Respiratory: Respiratory: Denies cough, Denies dyspnea and Denies wheezing Gastrointestinal: Gastrointestinal: Reports as per HPI Genitourinary: Genitourinary: Denies hematuria and Denies dysuria Musculoskeletal: Musculoskeletal: Denies arthralgias, Denies joint swelling and Denies neck pain Allergic/Immunologic: Allergic/Immunologic: Denies wheezing PMFSH Past Medical History Medical History BPH (benign prostatic hyperplasia) Erectile dysfunction Fatty liver GERD (gastroesophageal reflux disease) Hearing loss History of prostate cancer Treated with brachytherapy Hypercholesterolemia Hypertension Hypothyroidism (acquired) Pre-diabetes Pre-diabetes Vitamin D deficiency Family History Family History Father Diabetes mellitus Mother Hypertension Son Obstructive sleep apnea Social History Social History Social History: Lives at home with , she is POA. They have kids and grandkids locally. Smoking status: Never smoker Second hand tobacco smoke exposure: No Alcohol intake: never Alcohol use details: consumes 1 beer yearly Substance use: never Substance use type: does not use Lack of Transportation: No Lack of Food: Never True Current Housing: I Have Housing Concerned About Future Housing: No Difficulty Paying Gas/Electric Bills: No
--- NOTE | 2022-12-18 16:05 | WPDANESPN ---
Anes - Prog Note Post-Op Date/Time: 12/18/22 16:05 Cardiovascular status: normal Respiratory status: normal Airway patency: baseline Mental status: baseline Post-Op hydration status: normal Vital Signs: Last Vital Signs Temp 36.6 C 12/18/22 14:00 Pulse 57 L 12/18/22 14:00 Resp 16 12/18/22 14:00 BP 139/53 L 12/18/22 14:00 Pulse Ox 100 12/18/22 14:00 O2 Del Method Room Air 12/18/22 08:00 Pain Score (VAS): 04/23 I/O: Intake & Output 12/18/22 12/18/22 12/18/22 07:59 15:59 23:59 Intake Total 240 Balance 240 Laboratory Tests 12/18/22 05:10 12/18/22 05:10 12/17/22 12/18/22 12/18/22 18:56 05:10 05:18 WBC 6.7 RBC 3.85 L Hgb 10.3 L 10.4 L Hct 33.3 L 33.3 L MCV 86.5 MCH 27.0 MCHC 31.2 L RDW 14.8 H Plt Count 223 MPV 12.6 H Immature Gran % (Auto) 0.4 Neut % (Auto) 63.6 Lymph % (Auto) 27.4 [place] % (Auto) 7.2 Eos % (Auto) 1.0 Baso % (Auto) 0.4 Lymph # (Auto) 1.83 [place] # (Auto) 0.5 Eos # (Auto) 0.1 Baso # (Auto) 0.0 Abs Immat Gran (auto) 0.03 Absolute Neuts (auto) 4.2 Absolute Nucleated RBC 0.0 Nucleated RBC % 0.0 Sodium 139 Potassium 4.1 Chloride 105 Carbon Dioxide 24 Anion Gap 10 BUN 20 Creatinine 1.00 Estim Creat Clear Calc 63 Estimated GFR > 60 Glucose 100 Calcium 9.5 Total Bilirubin 0.5 AST 27 ALT 26 Alkaline Phosphatase 101 Total Protein 7.0 Albumin 4.3 TSH 1.970 Post-procedural complaints: none Patient Feedback: Patient satisfied with anesthetic care.
[2022-12-18] MEDS: ATORVASTATIN 20 MG TABLET BY MOUTH (20:42)
[2022-12-19 05:45] LABS: Basophils Percent Auto 0.4 % (0.2-1.2); Eosinophils Absolute Auto 0.1 K/mm3 (0-0.3); Eosinophils Percent Auto 1.7 % (0-4.4); Hematocrit 28.2 % (42.0-52.0); Immature Granulocyte Absolute 0.03 K/mm3 (0.00-0.031); Immature Granulocyte Percent A 0.6 % (0-0.5); Lymphocytes Percent Auto 29.5 % (18.3-44.2); Mean Corpuscular HGB Conc 31.9 g/dl (32-36); Mean Corpuscular Hemoglobin 27.3 pg (26-34); Mean Corpuscular Volume 85.5 fl (80-100); Mean Platelet Volume 12.6 fl (7.4-10.4); Monocytes Absolute Auto 0.5 K/mm3 (0.1-0.6); Monocytes Percent Auto 8.7 % (2.6-8.5); Neutrophils Absolute Auto 3.2 K/mm3 (1.3-6.7); Neutrophils Percent Auto 59.1 % (45.5-73.1); Platelet Count Result 201 k/mm3 (150-375); Red Cell Distribution Width 14.3 % (11.5-14.5); White Blood Count 5.4 K/mm3 (4.5-10.0)
[2022-12-19] MEDS: SUCRALFATE SUSP 100 MG/ML 10 ML UDC 1000 MG PO ×2 (06:24→11:35)
[2022-12-19] MEDS: LEVOTHYROXINE SODIUM 25 MCG TABLET BY MOUTH (06:24)
[2022-12-19 06:34] LABS: Alanine Aminotransferase 23 U/L (6-50); Albumin Level 3.6 g/dL (3.5-5.1); Alkaline Phosphatase 75 U/L (38-126); Anion Gap 6 mmol/L (8-16); Aspartate Amino Transferase 31 U/L (17-59); Bilirubin,Total 0.6 mg/dL (0.2-1.3); Blood Urea Nitrogen 17 mg/dL (9-20); Calcium 8.6 mg/dL (8.4-10.2); Carbon Dioxide 25 mmol/L (22-30); Chloride 104 mmol/L (98-107); Estimated CRCL calculation 63 ml/min; Estimated Glomerular Filt Rate > 60; Glucose 98 mg/dL (65-110); Sodium 135 mmol/L (137-145)
[2022-12-19 06:41] VITALS: BP 135/58; PULSE 60; RESP 16; TEMP 36.6; O2SAT 100
--- NOTE | 2022-12-19 07:08 | WPDGIPROGNO ---
Progress Note: A&P Assessment and Plan (1) Acute upper GI bleed: Code(s): K92.2 - Gastrointestinal hemorrhage, unspecified Status: Acute Assessment and Plan: Because of hematemesis he likely has peptic ulcer disease or other bleeding problems in the esophagus or stomach. EGD will be done later today 12/18/2022 no further bleeding. I told that there is a strong possibility of rebleeding. Usually it is the 1st 48 hours where that is most likely. I will start him on full liquids. Will obtain surgical consult, because with that deep base there was a possibility of perforation and also rebleeding. 12/19/2022 no evidence of bleeding except that his hemoglobin has dropped from 10.4-9.0. (2) GERD (gastroesophageal reflux disease): Code(s): K21.9 - Gastro-esophageal reflux disease without esophagitis Status: Acute Assessment and Plan: he had been on Tagamet for while years ago but is not on any acid reducing medications now. He occasionally gets heartburn (3) Positive H. pylori test: Code(s): A04.8 - Other specified bacterial intestinal infections Status: Acute Assessment and Plan: this raises the probability of his ulcer being neoplastic as H.pylori is usually present with gastric malignancy. I will start him on triple therapy for H pylori. (4) Gastric ulcer with hemorrhage: Qualifiers: Gastric ulcer chronicity: acute Qualified Code(s): K25.0 - Acute gastric ulcer with hemorrhage Code(s): K25.4 - Chronic or unspecified gastric ulcer with hemorrhage Status: Acute Assessment and Plan: He also was treated with cautery and epinephrine injection. Biopsies were obtained because of the suspicious nature and location being high in the gastric body. Will obtain CT scan today Plan Advanced to full liquids, Watch for for rebleeding. follow H&H Surgery consult Subjective Date/time seen: 12/19/22 07:08 he has no complaints today. He is feeling well. He did tolerate regular diet last night. He has been seen for surgery in case surgery would be needed acutely. He denies any abdominal pain. He has not seen any bloody or black stools overnight. Exam Const: General: cooperative and healthy appearing Orientation/consciousness: patient oriented x3 HENMT: Head: normal to inspection Ears: hearing grossly normal bilaterally Mouth: Yes Normal oral and palatal mucosa present Eyes: General: appearance normal, both eyes and all related structures Neck: Neck: normal visual inspection Chest: Chest palpation & inspection: normal inspection of the chest Resp: Effort & Inspection: normal respiratory effort Auscultation: clear to auscultation bilaterally Cardio: Rate: regular rate Rhythm: regular rhythm GI: Inspection: normal to inspection GI Palp: No abdominal tenderness, Yes Soft to palpation, No Guarding due to palpation present (GI) and Yes No hepatosplenomegaly present Auscultation: normal bowel sounds Skin: General skin exam: normal color and no jaundice Neuro: General: patient oriented x3 Speech: normal speech Objective Data Vital Signs Vital Signs: Vital Signs - 24 hr 12/18/22 08:57 12/18/22 14:00 12/18/22 08:00 Temperature 36.6 C Pulse Rate 66 57 L Respiratory Rate 16 Blood Pressure 139/53 L Pulse Oximetry 100 Oxygen Delivery Room Air 12/18/22 08:00 12/18/22 20:07 12/18/22 20:00 Temperature 36.8 C Pulse Rate 84 66 66 Respiratory Rate 16 16 Blood Pressure 122/52 L Pulse Oximetry 100 100 Oxygen Delivery Room Air 12/18/22 21:42 12/19/22 06:41 Temperature 36.6 C Pulse Rate 60 Respiratory Rate 16 Blood Pressure 135/58 L Pulse Oximetry 100 100 Oxygen Delivery Room Air Intake/Output Intake/Output: Intake & Output 12/16/22 12/17/22 12/18/22 12/19/22 23:59 23:59 23:59 23:59 Intake Total 1050 480 250 Balance 1050 480 250 Meds/Results Medications: Active Med
[2022-12-19] MEDS: AMOXICILLIN 500 MG CAPSULE 1000 MG PO (09:22)
[2022-12-19] MEDS: MULTIVITAMINS /C LUTEIN (CENTRUM SILVER) TABLET *BKC 1 TAB PO (09:22)
[2022-12-19 09:23] VITALS: PULSE 68
[2022-12-19] MEDS: CLARITHROMYCIN 500 MG TABLET PO (09:23)
[2022-12-19] MEDS: PANTOPRAZOLE SODIUM IV 40 MG VIAL IV PUSH (09:23)
[2022-12-19] MEDS: METOPROLOL SUCCINATE EXT REL 25 MG TABCR BY MOUTH (09:23)
[2022-12-19 09:58] VITALS: PULSE 65; O2SAT 98
--- NOTE | 2022-12-19 10:07 | PM.DS ---
DS: Admitting Diagnosis Discharge Date 12/19/22 Admitting Diagnosis coffee ground emesis DS: Discharge Diagnosis Discharge Diagnosis (1) Acute upper GI bleed: Code(s): K92.2 - Gastrointestinal hemorrhage, unspecified Status: Acute Assessment and Plan: Monitor hemoglobin, ADAT, ppi, IV fluids Appreciate GI consult, EGD showed gastric ulcer concerning for perforation GI recommending PPI b.i.d., follow-up outpatient for biopsy General surgery being consulted due to severity of fundal ulceration and concern for perforation (2) Anemia: Qualifiers: Anemia type: unspecified type Qualified Code(s): D64.9 - Anemia, unspecified Code(s): D64.9 - Anemia, unspecified Status: Acute Assessment and Plan: Monitor hemoglobin closely (3) Hypothyroidism (acquired): Code(s): E03.9 - Hypothyroidism, unspecified Status: Acute Assessment and Plan: TSH wnl, continue levothyroxine (4) Type 2 diabetes mellitus with hyperglycemia: Code(s): E11.65 - Type 2 diabetes mellitus with hyperglycemia Status: Acute Assessment and Plan: Accu-Cheks, sliding scale insulin Blood glucose reviewed 12/18 (5) Primary hypertension: Code(s): I10 - Essential (primary) hypertension Status: Acute Assessment and Plan: Blood pressure reviewed 12/18 (6) Hyperlipidemia: Qualifiers: Hyperlipidemia type: mixed hyperlipidemia Qualified Code(s): E78.2 - Mixed hyperlipidemia Code(s): E78.5 - Hyperlipidemia, unspecified Status: Acute Assessment and Plan: Continue statin (7) GERD (gastroesophageal reflux disease): Code(s): K21.9 - Gastro-esophageal reflux disease without esophagitis Status: Acute Assessment and Plan: PPI BID Plan DVT prophylaxis with SCDs GI prophylaxis PPI Code status full code DS: Summary Hospital Course Hospital Course: 72-year-old male with history of peptic ulcer disease in his 30s, prediabetes, GERD, hypertension and hypothyroidism is presenting with coffee-ground emesis and severe nausea found to have a gastric ulcer. EGD performed 12/17 showing gastric ulcer with very deep base, concerning for perforation and high rebleeding risk. General surgery saw the patient and recommended continuing the Protonix twice daily as well as Carafate 1 g q.a.c. and q.h.s.. They stated that if there was severe recurrent bleeding, surgery would be recommended. However, at this time, conservative management is best. Patient's diet was advanced and he did have some recurrence of symptoms. Therefore he was monitored a little longer. All symptoms resolved with p.o. intake. Patient was discharged in stable condition with close outpatient follow-up. Please see above and med rec for details. Time Spent with Patient Time attestation: Total time spent providing and/or coordinating discharge services: Exam Narrative: General: No acute distress, alert and oriented per baseline HEENT: Atraumatic, normocephalic, mucous membranes moist CV: Regular rate and rhythm, S1, S2 Lungs: Clear to auscultation bilaterally, no rales or crackles noted, no wheezes, good air entry Abdomen: Soft, nontender, nondistended Extremities: Normal to inspection Skin: No rashes noted, no lesions or wounds seen Psych: Euthymic, normal affect DS: Data Data Completed and Pending Pending studies at discharge: Pending at discharge 12/17/22 15:25 Surgical [PTH] Routine Labs on day of discharge: Labs from last 24 hours 12/19/22 04:51 WBC 5.4 RBC 3.30 L Hgb 9.0 L Hct 28.2 L MCV 85.5 MCH 27.3 MCHC 31.9 L RDW 14.3 Plt Count 201 MPV 12.6 H Immature Gran % (Auto) 0.6 H Neut % (Auto) 59.1 Lymph % (Auto) 29.5 [place] % (Auto) 8.7 H Eos % (Auto) 1.7 Baso % (Auto) 0.4 Lymph # (Auto) 1.60 [place] # (Auto) 0.5 Eos # (Auto) 0.1 Baso # (Auto) 0.0 Abs Immat Gr
[2022-12-19 11:45] LABS: Hematocrit 31.5 % (42.0-52.0); Hemoglobin 9.6 g/dL (14.0-18.0)
--- NOTE | 2022-12-19 12:31 | PM.PNGS ---
Progress Note: A&P Assessment and Plan (1) Gastric ulcer with hemorrhage: Qualifiers: Gastric ulcer chronicity: acute Qualified Code(s): K25.0 - Acute gastric ulcer with hemorrhage Code(s): K25.4 - Chronic or unspecified gastric ulcer with hemorrhage Status: Acute Assessment and Plan: No signs of active bleeding. Small dip in hemoglobin, but likely dilutional. Awaiting CT abd results from this AM. Surgically stable for discharge. If gastric cancer is suspected, will likely need to be referred to a foregut specialist or Surgical oncologist. (2) Positive H. pylori test: Code(s): A04.8 - Other specified bacterial intestinal infections Status: Acute (3) Anemia: Qualifiers: Anemia type: unspecified type Qualified Code(s): D64.9 - Anemia, unspecified Code(s): D64.9 - Anemia, unspecified Status: Acute (4) Type 2 diabetes mellitus with hyperglycemia: Code(s): E11.65 - Type 2 diabetes mellitus with hyperglycemia Status: Acute (5) GERD (gastroesophageal reflux disease): Code(s): K21.9 - Gastro-esophageal reflux disease without esophagitis Status: Acute Subjective Subjective Date/Time Seen: 12/19/22 12:31 Interval history: Doing well today. A little GERD symptoms while lying down for CT but no hematemesis or melena. Tolerating diet. Exam GI: Inspection: non-distended GI Palp: Yes Soft to palpation, No Tenderness to palpation present (GI) and No Guarding due to palpation present (GI) Auscultation: normal bowel sounds Objective Data Vital Signs Vital Signs: Vital Signs - 24 hr 12/18/22 14:00 12/18/22 20:07 12/18/22 20:00 Temperature 36.6 C 36.8 C Pulse Rate 57 L 66 66 Respiratory Rate 16 16 16 Blood Pressure 139/53 L 122/52 L Pulse Oximetry 100 100 100 Oxygen Delivery Room Air 12/18/22 21:42 12/19/22 06:41 12/19/22 09:23 Temperature 36.6 C Pulse Rate 60 68 Respiratory Rate 16 Blood Pressure 135/58 L Pulse Oximetry 100 100 Oxygen Delivery Room Air 12/19/22 09:58 12/19/22 08:00 Temperature Pulse Rate 65 Respiratory Rate Blood Pressure Pulse Oximetry 98 Oxygen Delivery Room Air Room Air Intake/Output Intake/Output: Intake & Output 12/16/22 12/17/22 12/18/22 12/19/22 23:59 23:59 23:59 23:59 Intake Total 1050 480 490 Balance 1050 480 490 Meds/Results Medications: Active Medications Generic Name Dose Route Start Last Admin Trade Name Freq PRN Reason Stop Dose Admin Albuterol 1 puff 12/17/22 14:33 Albuterol Sulfate (*Sp) Aerosol 1 Puff INHALATION Q4HRT PRN chest tightness Amoxicillin 1,000 mg 12/19/22 09:00 12/19/22 09:22 Amoxicillin 500 Mg Capsule PO 1,000 mg Q12HR ALFREDO Administration Atorvastatin Calcium 20 mg 12/17/22 21:00 12/18/22 20:42 Atorvastatin 20 Mg Tablet BY MOUTH 20 mg HS ALFREDO Administration Clarithromycin 500 mg 12/19/22 09:00 12/19/22 09:23 Clarithromycin 500 Mg Tablet PO 500 mg Q12HR ALFREDO Administration Levothyroxine Sodium 25 mcg 12/18/22 06:30 12/19/22 06:24 Levothyroxine Sodium 25 Mcg Tablet BY MOUTH 25 mcg DAILY@0630 ALFREDO Administration Metoprolol Succinate 25 mg 12/17/22 15:00 12/19/22 09:23 Metoprolol Succinate Ext Rel 25 Mg Tabcr BY MOUTH 25 mg DAILY ALFREDO Administration Multivitamins/Minerals 1 tab 12/18/22 09:00 12/19/22 09:22 Multivitamins /C Lutein (Centrum Silver) Tablet *Bkc PO 1 tab DAILY ALFREDO Administration Pantoprazole Sodium 40 mg 12/17/22 21:00 12/19/22 09:23 Pantoprazole Sodium Iv 40 Mg Vial IV PUSH 40 mg Q12HR ALFREDO Administration Sucralfate 1,000 mg 12/18/22 11:30 12/19/22 11:35 Sucralfate Susp 100 Mg/Ml 10 Ml Udc PO 1,000 mg ACHS ALFREDO Administration Labs Labs: Laboratory Results - last 24 hr 12/19/22 12/19/22 04:51 11:39 WBC 5.4 RBC 3.30 L Hgb 9.0 L 9.6 L Hct 28.2 L 31.5 L MCV 85.5 MCH 27.3 M
[2022-12-19 14:00] VITALS: BP 128/56; PULSE 63; RESP 16; TEMP 36.7; O2SAT 99
== END 2022-12-19 16:10 | disposition home or self-care (01) | DRG 564 ==
LOC: ANHED 12-17 00:13 → ANH2MED 12-17 07:54
PROVIDERS: Internal Medicine Gastroenterology; Admitting Provider Internal Medicine; Emergency Provider Physician Assistant; PCP Family Medicine; Visit Provider Student in an Organized Health Care Education/Training Program
PROC: 0DJ08ZZ Inspection of Upper Intestinal Tract, Via Natural or Artificial Opening Endoscopic (ICD-10-PCS; CPT 43235; principal; 2022-12-17 15:15)
DX: D48.19 Other specified neoplasm of uncertain behavior of connective and other soft tissue (principal); K25.0 Acute gastric ulcer with hemorrhage; B96.81 Helicobacter pylori [H. pylori] as the cause of diseases classified elsewhere; I10 Essential (primary) hypertension; E78.00 Pure hypercholesterolemia, unspecified; E55.9 Vitamin D deficiency, unspecified; E03.9 Hypothyroidism, unspecified; K76.0 Fatty (change of) liver, not elsewhere classified; K21.9 Gastro-esophageal reflux disease without esophagitis; N40.0 Benign prostatic hyperplasia without lower urinary tract symptoms; Z85.46 Personal history of malignant neoplasm of prostate; D64.9 Anemia, unspecified; E11.65 Type 2 diabetes mellitus with hyperglycemia
CPT/HCPCS: 36415; 74177; 80053; 82948; 84443; 85014; 85018; 85025; 85610; 85730; 86850; 86900; 86901; 87081; 88305; 88342; 93005; 96361; 96374; 96375; 96376; 99285; A9270; C9113; G0378; J0171; J0780; J2405; J2704; J7030; J7120; Q9967

== ENCOUNTER 2022-12-30 09:30 | Outpatient (CLI) | payer MEDICARE, SELFPAY ==
[2022-12-30 12:53] LABS: Kit Draw Collected
== END 2022-12-30 09:31 | disposition home or self-care (01) ==
LOC: ANHLAB 09:32
PROVIDERS: PCP Family Medicine; Visit Provider Internal Medicine Hematology & Oncology
DX: C49.A2 Gastrointestinal stromal tumor of stomach (principal)
CPT/HCPCS: 36415

== ENCOUNTER 2023-01-05 11:04 | Outpatient (CLI) | payer MEDICARE, SELFPAY ==
--- NOTE | ~2023-01-05 | CT_ITS ---
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 Dose reduction technique was used on this scan by utilizing automated exposu re control and iterative reconstruction technique. The dose-length product (DLP) was 357.38 mGy-cm. Findings: There is no evidence of any significant mediastinal, hilar or axillary lymphadenopathy. Small calcifi ed mediastinal and hilar lymph nodes are present. There is no filling defect in the pulmonary arteria l tree to suggest pulmonary embolus. There is no evidence of aortic dissection or aneurysm. There is no evidence of pleural or pericardial effusion. Calcified granulomas are present. There is probable focal scarring or tree-in-bud opacity at the righ t lung base.. Images through the upper abdomen reveal 6.4 cm exophytic mass near the gastric fundus, extending into left upper quadrant. Impression: No definite evidence for metastatic disease in the thorax. 6.4 cm exophytic mass in the gastric fundus, compatible with history of malignant gastrointestinal st romal tumor. Focal scarring or tree-in-bud opacities the right lung base. Consider focal small areas infection. Ev idence of underlying prior exam disc disease. Reviewed, dictated and finalized at location M. Impression: No definite evidence for metastatic disease in the thorax. 6.4 cm exophytic mass in the gastric fundus, compatible with history of maligna nt gastrointestinal stromal tumor. Focal scarring or tree-in-bud opacities the right lung base. Consider focal sma ll areas infection. Evidence of underlying prior exam disc disease.
== END 2023-01-05 11:05 | disposition home or self-care (01) ==
PROVIDERS: PCP Family Medicine; Visit Provider Internal Medicine Hematology & Oncology
DX: C49.A2 Gastrointestinal stromal tumor of stomach (principal)
CPT/HCPCS: 71260; Q9967

== ENCOUNTER 2023-06-24 09:28 | Outpatient (CLI) | payer MEDICARE, SELFPAY ==
--- NOTE | ~2023-06-24 | CT_ITS ---
EXAMINATION: CT chest abdomen pelvis w con DATE: 06/24/2023 10:20 INDICATION: Malignant neoplasm with gastrointestinal stromal tumor TECHNIQUE: Computed tomography (CT) of the chest, abdomen, and pelvis was performed with 100 mL Omnip aque-350 intravenous contrast. Automated exposure control and iterative reconstruction technique were employed. The dose-length product was 770.13 mGy-cm. COMPARISON: Chest CT dated 01/05/[address] abdomen and pelvis dated 12/19/2022 FINDINGS: CHEST CT: Minimal discoid atelectasis at the left lung base. There are multiple scattered bilateral calcified p ulmonary nodules along with calcified mediastinal and bilateral hilar lymph nodes consistent with old granulomatous disease. No noncalcified pulmonary nodules, pneumonia, pulmonary edema or pleural effu isabell. Heart size is normal. Atherosclerotic coronary artery calcifications. No pericardial effusion. Thoracic aorta is normal in caliber with no dissection. No pathologically enlarged thoracic lymphaden opathy. Mild thoracic spondylosis. ABDOMEN/PELVIS CT: Resection of the previously noted exophytic mass arising from the fundus of the stomach with residual suture line at the site of resection. No evident residual or locally recurrent disease. There are sc attered hepatic and splenic calcifications consistent with old granulomatous disease. Nonspecific new 14 x 8 mm hypodense lesion at the superior right anterior margin of the spleen which position relati vely close to the site of the previously resected mass. Gallbladder, pancreas and bilateral adrenal g lands are normal. There are multiple bilateral renal cysts the largest on the left measuring 3.1 cm i n maximal diameter. Bladder is normal. Multiple brachytherapy seeds within the enlarged prostate. A f ew scattered colonic diverticula without adjacent inflammatory stranding to suggest diverticulitis. S mall bowel and appendix are normal. No free intraperitoneal gas or fluid. No pathologically enlarged abdominal or pelvic lymphadenopathy. There is calcified atherosclerosis of the aorta and many of the other arteries. Mild lumbar spondylosis. IMPRESSION: 1. Interval resection of prior exophytic mass arising from the fundus of the stomach reportedly malig nant gastrointestinal stromal tumor. 2. New indeterminate 14 x 8 mm hypodense splenic lesion position near the site of the resected mass w hich could be due to prostatic disease, sequela of trauma related to the surgery or other unrelated n onspecific etiology. No other lesions in the chest, abdomen or pelvis suspicious for metastatic disea se. Reviewed, dictated and finalized at location A. IMPRESSION: 1. Interval resection of prior exophytic mass arising from the fundus of the st omach reportedly malignant gastrointestinal stromal tumor. 2. New indeterminate 14 x 8 mm hypodense splenic lesion position near the site of the resected mass which could be due to prostatic disease, sequela of trauma related to the surgery or other unrelated nonspecific etiology. No other lesio ns in the chest, abdomen or pelvis suspicious for metastatic disease.
[2023-06-24 10:03] LABS: Estimated Glomerular Filt Rate > 60
== END 2023-06-24 09:29 | disposition home or self-care (01) ==
PROVIDERS: PCP Family Medicine; Visit Provider Internal Medicine Hematology & Oncology
DX: C49.A2 Gastrointestinal stromal tumor of stomach (principal)
CPT/HCPCS: 71260; 74177; Q9967

== ENCOUNTER 2023-07-01 09:59 | Outpatient (CLI) | payer MEDICARE, SELFPAY ==
[2023-07-01 10:22] LABS: Basophils Percent Auto 0.3 % (0.2-1.2); Eosinophils Absolute Auto 0.1 K/mm3 (0-0.3); Eosinophils Percent Auto 1.5 % (0-4.4); Hemoglobin 11.3 g/dL (14.0-18.0); Immature Granulocyte Absolute 0.02 K/mm3 (0.00-0.031); Immature Granulocyte Percent A 0.3 % (0-0.5); Lymphocytes Absolute Auto 1.91 K/mm3 (0.9-3.2); Lymphocytes Percent Auto 32.4 % (18.3-44.2); Mean Corpuscular HGB Conc 29.7 g/dl (32-36); Mean Corpuscular Hemoglobin 21.3 pg (26-34); Mean Corpuscular Volume 71.7 fl (80-100); Monocytes Absolute Auto 0.4 K/mm3 (0.1-0.6); Monocytes Percent Auto 7.3 % (2.6-8.5); Neutrophils Absolute Auto 3.4 K/mm3 (1.3-6.7); Neutrophils Percent Auto 58.2 % (45.5-73.1); Platelet Count Result 228 k/mm3 (150-375); Red Cell Distribution Width 19.9 % (11.5-14.5); White Blood Count 5.9 K/mm3 (4.5-10.0)
[2023-07-01 10:23] LABS: Blood Urea Nitrogen 13 mg/dL (8-26); Carbon Dioxide 24 mmol/L (22-30); Chloride 103 mmol/L (98-109); Estimated Glomerular Filt Rate > 60; Glucose 122 mg/dL (70-105); Ionized Calcium (POC) 1.28 mmol/L (1.11-1.31); Potassium 3.9 mmol/L (3.5-4.9); Sodium 139 mmol/L (138-146)
[2023-07-01 10:25] LABS: Anisocytosis 1+; Hypochromasia 1+; Microcytosis 1+ (NORMAL); Ovalocytes 1+; Platelet Estimate Adequate (Adequate); Poikilocytosis 1+; Schistocytes None Seen
[2023-07-01 15:37] LABS: Alanine Aminotransferase 20 U/L (6-50); Albumin Level 4.7 g/dL (3.5-5.1); Alkaline Phosphatase 126 U/L (38-126); Anion Gap 11 mmol/L (4-12); Aspartate Amino Transferase 22 U/L (17-59); Bilirubin,Total 0.3 mg/dL (0.2-1.3); Blood Urea Nitrogen 14 mg/dL (9-20); Calcium 10.4 mg/dL (8.4-10.2); Carbon Dioxide 23 mmol/L (22-30); Chloride 104 mmol/L (98-107); Estimated Glomerular Filt Rate > 60; Glucose 115 mg/dL (65-110); Sodium 138 mmol/L (137-145)
[2023-07-01 16:33] LABS: Iron 36 ug/dL (49-181)
[2023-07-01 16:47] LABS: Percent Iron Saturation 9 % (20-50)
[2023-07-01 17:09] LABS: Ferritin 7.14 ng/mL (11.1-264)
== END 2023-07-01 10:00 | disposition home or self-care (01) ==
PROVIDERS: PCP Family Medicine; Visit Provider Internal Medicine Hematology & Oncology
DX: D64.9 Anemia, unspecified (principal); C49.A2 Gastrointestinal stromal tumor of stomach
CPT/HCPCS: 36415; 80047; 80053; 82607; 82728; 83540; 83550; 85025; 85055

== ENCOUNTER 2023-07-07 11:53 | Outpatient (CLI) | payer MEDICARE, SELFPAY ==
--- NOTE | ~2023-07-07 | PE_ITS ---
EXAMINATION: PET skull to mid thigh DATE: 07/07/2023 14:06 INDICATION: Malignant gastrointestinal stromal tumor of stomach. TECHNIQUE: Blood glucose level was 90 mg/dL. 10.35 mCi of 18-fluorodeoxyglucose (18-FDG) was administ ered i.v. Low dose computed tomography (CT) images were acquired from the base of the brain to the pr oximal thighs for attenuation correction and anatomic localization. Automated exposure control was em ployed. Dose-length product (DLP) was 997 mGy-cm. Positron emission tomography (PET) images were acqu ired in the same distribution. COMPARISON: CT chest, abdomen, and pelvis 06/24/2023 FINDINGS: Head/neck: There are no pathologically enlarged lymph nodes. Chest: Calcified pulmonary nodules and calcified hilar and mediastinal lymph nodes are consistent wit h old granulomatous disease. No pleural effusion. The heart size is normal. There are coronary artery calcifications. No pericardial effusion. Abdomen/pelvis/proximal thighs: Calcifications in the liver and spleen are consistent with old granul omatous disease. There are surgical changes in the stomach. The gallbladder, pancreas, and adrenal gl ands are normal. There is cortical thinning of the kidneys. There is a 3.2 cm cyst in left kidney. Th ere are multiple masses in the kidneys containing fat, consistent with angiomyolipomas measuring up t o 1.8 cm in the left. There are brachytherapy seeds in the prostate. There is diverticulosis of the c olon without evidence of diverticulitis. There are no dilated loops of bowel. There are no pathologic ally enlarged lymph nodes. There is no free intraperitoneal fluid. There is calcified atherosclerosis of the aorta and many of the other arteries. There is no osseous malignancy. IMPRESSION: 1. No evidence of metastatic disease. Reviewed, dictated and finalized at location E.
[2023-07-07 12:38] LABS: Glucose Point of Care 90 mg/dl (65-105)
== END 2023-07-07 11:54 | disposition home or self-care (01) ==
PROVIDERS: PCP Family Medicine; Visit Provider Internal Medicine Hematology & Oncology
DX: C49.A2 Gastrointestinal stromal tumor of stomach (principal)
CPT/HCPCS: 78815; A9552

== ENCOUNTER 2023-10-13 06:58 | Outpatient (CLI) | payer MEDICARE, SELFPAY ==
--- NOTE | ~2023-10-13 | CT_ITS ---
CT abdomen pelvis w con Ordering provider: Shravan Laguerre MD History: 73 years Male with . MALIGNANT GASTROINTESTINAL STOMAL TUMOR . Comparison: June 24, 2023 Technique: CT abdomen and pelvis with IV and without oral contrast. Automated exposure control and it erative reconstruction technique were employed. The dose-length product was 716.42 mGy-cm. 100 mL Omn ipaque 350 was given IV. Findings: VISUALIZED LOWER CHEST: Calcified bilateral hilar lymph nodes also in the subcarinal area. UPPER ABDOMINAL ORGANS: Liver: Mild fat infiltration. Gallbladder: Normal. Spleen: The hypodense area seen in the spleen medially is unchanged. Splenule is seen in the hilum of the spleen unchanged. Stomach/duodenum: Postoperative changes in the stomach. Thickening of the wall of the lower esophagus is demonstrated. Pancreas: Normal. Adrenals: Normal. Kidneys: Bilateral small renal cysts the largest in the left kidney midpole measuring 3.1 cm. PELVIC ORGANS: The bladder is underfilled with slightly thickened wall. Prostatic brachytherapy finch es is noted. BOWEL AND MESENTERY: Colon: No evidence of diverticulitis. Fecal material is loaded in the colon. The appendix is not demo nstrated. Small Bowel: Normal. No obstruction. Peritoneum/mesentery: No free air or free fluid. No mesenteric lymphadenopathy. Small lymph nodes are seen in the pelvis. RETROPERITONEUM: Mild atheromatous disease of the abdominal aorta. No retroperitoneal lymphadenopat hy. MUSCULOSKELETAL: Superficial soft tissues: The superficial soft tissues are normal. Bones: Age appropriate degenerative changes of the spine. IMPRESSION: 1. The hypodensity seen in the spleen is unchanged. 2. Postoperative changes in the fundus of the stomach with no definite recurrence seen. No significa nt change from previous examination. 3. Fat infiltration of the liver. 4. Bilateral renal cysts. 5. Constipation. Reviewed, dictated and finalized at location A. IMPRESSION: 1. The hypodensity seen in the spleen is unchanged. 2. Postoperative changes in the fundus of the stomach with no definite recurre nce seen. No significant change from previous examination. 3. Fat infiltration of the liver. 4. Bilateral renal cysts. 5. Constipation.
[2023-10-13 07:52] LABS: Estimated Glomerular Filt Rate > 60
== END 2023-10-13 06:59 | disposition home or self-care (01) ==
PROVIDERS: PCP Family Medicine; Visit Provider Internal Medicine Hematology & Oncology
DX: C49.A2 Gastrointestinal stromal tumor of stomach (principal); K76.0 Fatty (change of) liver, not elsewhere classified; N28.1 Cyst of kidney, acquired; K59.00 Constipation, unspecified
CPT/HCPCS: 74177; Q9967

== ENCOUNTER 2023-10-18 08:13 | Outpatient (CLI) | payer MEDICARE, SELFPAY ==
[2023-10-18 08:51] LABS: Basophils Percent Auto 0.4 % (0.2-1.2); Eosinophils Absolute Auto 0.1 K/mm3 (0-0.3); Eosinophils Percent Auto 1.3 % (0-4.4); Hematocrit 49.3 % (42.0-52.0); Hemoglobin 15.6 g/dL (14.0-18.0); Immature Granulocyte Absolute 0.01 K/mm3 (0.00-0.031); Immature Granulocyte Percent A 0.2 % (0-0.5); Immature Platelet Fraction Pct 9.9 % (0.9-11.2); Lymphocytes Absolute Auto 1.59 K/mm3 (0.9-3.2); Lymphocytes Percent Auto 35.7 % (18.3-44.2); Mean Corpuscular HGB Conc 31.6 g/dl (32-36); Mean Corpuscular Hemoglobin 25.9 pg (26-34); Mean Corpuscular Volume 81.9 fl (80-100); Mean Platelet Volume 12.1 fl (7.4-10.4); Monocytes Absolute Auto 0.4 K/mm3 (0.1-0.6); Monocytes Percent Auto 8.5 % (2.6-8.5); Neutrophils Absolute Auto 2.4 K/mm3 (1.3-6.7); Neutrophils Percent Auto 53.9 % (45.5-73.1); Platelet Count Result 170 k/mm3 (150-375); Red Blood Count 6.02 M/mm3 (4.6-6.20); Red Cell Distribution Width 15.8 % (11.5-14.5); White Blood Count 4.5 K/mm3 (4.5-10.0)
== END 2023-10-18 08:14 | disposition home or self-care (01) ==
LOC: ANHLAB 08:17
PROVIDERS: PCP Family Medicine; Visit Provider Internal Medicine Hematology & Oncology
DX: C49.A2 Gastrointestinal stromal tumor of stomach (principal); D64.9 Anemia, unspecified
CPT/HCPCS: 36415; 82728; 83540; 83550; 85025; 85055

== ENCOUNTER 2023-10-19 07:58 | Outpatient (CLI) | payer MEDICARE, SELFPAY ==
[2023-10-19 10:23] LABS: Alanine Aminotransferase 30 U/L (6-50); Albumin Level 4.4 g/dL (3.5-5.1); Alkaline Phosphatase 126 U/L (38-126); Anion Gap 12 mmol/L (4-12); Aspartate Amino Transferase 24 U/L (17-59); Bilirubin,Total 0.5 mg/dL (0.2-1.3); Blood Urea Nitrogen 12 mg/dL (9-20); Calcium 9.8 mg/dL (8.4-10.2); Carbon Dioxide 25 mmol/L (22-30); Chloride 100 mmol/L (98-107); Estimated Glomerular Filt Rate > 60; Glucose 111 mg/dL (65-110); Iron 101 ug/dL (49-181); Potassium 3.8 mmol/L (3.4-5.0); Sodium 137 mmol/L (137-145)
[2023-10-19 10:33] LABS: Percent Iron Saturation 30 % (20-50)
[2023-10-19 11:34] LABS: Folic Acid > 20.0 ng/mL (2.76->20)
== END 2023-10-19 07:59 | disposition home or self-care (01) ==
LOC: ANHLAB 08:00
PROVIDERS: PCP Family Medicine; Visit Provider Internal Medicine Hematology & Oncology
DX: C49.A2 Gastrointestinal stromal tumor of stomach (principal); D64.9 Anemia, unspecified
CPT/HCPCS: 36415; 80053; 82607; 82728; 82746; 83540; 83550

== ENCOUNTER 2024-01-24 06:50 | Outpatient (CLI) | payer MEDICARE, SELFPAY ==
--- NOTE | ~2024-01-24 | CT_ITS ---
EXAMINATION: CT abdomen pelvis w con DATE: 01/24/2024 08:24 INDICATION: Gastrointestinal stromal tumor TECHNIQUE: Computed tomography (CT) of the abdomen and pelvis was performed with 100 mL Omnipaque-350 intravenous contrast. Automated exposure control and iterative reconstruction technique were employe d. The dose-length product was 703.95 mGy-cm. COMPARISON: 10/13/2023 FINDINGS: There are few scattered small calcified pulmonary nodules along with calcified mediastinal and bilate ral hilar lymph nodes as well as multiple scattered small hepatic and splenic calcifications all cons istent with old granulomatous disease. Heart size is normal. Extensive atherosclerotic coronary arter y calcifications and prominent aortic valve calcification. No pericardial or pleural effusion. Suture line along the fundus of the stomach possibly related to resection of a reported gastrointestinal st romal tumor. No abnormal masses to suggest residual or locally recurrent disease. Gallbladder, pancre as and bilateral adrenal glands are normal. There are couple fluid attenuation cysts in the left kidn ey the larger measuring 3.3 cm. There are also multiple bilateral small macroscopic fat-containing an giomyolipomas, the largest on the left measuring 1.9 cm. Bowels including the appendix are normal. Bl adder is normal. Numerous brachytherapy seeds at the prostate. No free intraperitoneal gas or fluid. No pathologically enlarged abdominal or pelvic lymphadenopathy. There is calcified atherosclerosis of the aorta and many of the other arteries. Mild thoracolumbar dextrocurvature with mild spondylosis. Mild left and mild to moderate right hip osteoarthritis. IMPRESSION: 1. Suture line at the fundus of the stomach presumably for resection of a reported GI stromal tumor. No evident residual, locally recurrent or metastatic disease. 2. Multiple bilateral renal angiomyolipomas. Reviewed, dictated and finalized at location B. 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 Suture line at the fundus of the stomach presumably for resection of a repor tyra GI stromal tumor. No evident residual, locally recurrent or metastatic dise ase. 2. Multiple bilateral renal angiomyolipomas.
== END 2024-01-24 06:51 | disposition home or self-care (01) ==
PROVIDERS: PCP Family Medicine; Visit Provider Internal Medicine Hematology & Oncology
DX: C49.A2 Gastrointestinal stromal tumor of stomach (principal); I51.9 Heart disease, unspecified; D17.5 Benign lipomatous neoplasm of intra-abdominal organs
CPT/HCPCS: 74177; Q9967

== ENCOUNTER 2024-02-03 09:32 | Outpatient (CLI) | payer MEDICARE, SELFPAY ==
[2024-02-03 11:25] LABS: Immunoglobulin A 230 mg/dL (70-400); Immunoglobulin G 1239 mg/dL (700-1600); Immunoglobulin M 382 mg/dL (40-230)
[2024-02-07 05:28] LABS: Protein, Total 7.5 g/dL (6.1-8.1)
[2024-02-07 15:32] LABS: Albumin 4.2 g/dL (3.8-4.8); Alpha 1 Globulin 0.3 g/dL (0.2-0.3); Alpha 2 Globulin 0.8 g/dL (0.5-0.9); Beta 1 Globulin 0.5 g/dL (0.4-0.6); Gamma Globulin 1.4 g/dL (0.8-1.7)
== END 2024-02-03 09:33 | disposition home or self-care (01) ==
LOC: ANHLAB 09:33
PROVIDERS: PCP Family Medicine; Visit Provider Internal Medicine Hematology & Oncology
DX: R77.9 Abnormality of plasma protein, unspecified (principal)
CPT/HCPCS: 36415; 82784; 83883; 84155; 84165

== ENCOUNTER 2024-05-14 08:48 | Outpatient (CLI) | payer MEDICARE, SELFPAY ==
[2024-05-14 09:33] LABS: Estimated Glomerular Filt Rate > 60
== END 2024-05-14 08:49 | disposition home or self-care (01) ==
PROVIDERS: PCP Family Medicine; Visit Provider Internal Medicine Hematology & Oncology
DX: C49.A2 Gastrointestinal stromal tumor of stomach (principal); D17.71 Benign lipomatous neoplasm of kidney; Z92.3 Personal history of irradiation; Z98.890 Other specified postprocedural states
CPT/HCPCS: 74177; Q9967

== ENCOUNTER 2024-05-17 08:34 | Outpatient (CLI) | payer MEDICARE, SELFPAY ==
--- OUTSIDE RECORDS SUMMARY | 2024-05-17 08:55 | XMS_ITS | Clinical Summary ---
Author Organization [facility] Sheryl Rolon Address [address] [place] [address] Care Team Providers Care Fruit Farmworker Name Role Phone Josephine Shrestha MD Primary Care Provider [phone] Allergies No known active allergies Medications atorvastatin (LIPITOR) 20 mg tablet 08/10/2020 Active metoprolol succinate (TOPROL XL) 25 mg Extended Release 24 hour tablet Take 25 mg by mouth daily. Active sildenafiL, pulm.hypertensi on, (REVATIO) 20 mg Tablet Take 20 mg by mouth. Active levothyroxine 25 mcg tablet Take 25 mcg by mouth daily in the morning. Active metFORMIN (GLUCOPHAGE) 500 mg tablet Take 500 mg by mouth 2 times daily with meals. Active CLARITHROMYCIN ORAL Take by mouth. Active lisinopril-hydr oCHLOROthiazide (ZESTORETIC) 20-25 mg tablet 12/02/2022 Act reina multivitamin (DAILY-JERMAINE) tablet Take 2 Tablets by mouth daily. Active CHOLECALCIFEROL , VITAMIN D3, ORAL Take 1 Tablet by mouth daily. Active pantoprazole (PROTONIX) 40 mg Tablet, Delayed Release (E.C.) Take 1 Tablet (40 mg) by mouth daily. 30 Tablet 2 12/19/2023 Active Active Problems No known active problems Resolved Problems Problem Noted Date Diagnosed Date Resolved Date Gastric mass 01/11/2023 03/08/2023 Encounters Date Type Department Care Team Description 05/17/2024 Orders Only [facility] Oncology and Hematology - [place] [address] [place] [address] Shravan Laguerre MD Malignant gastrointestinal stromal tumor (GIST) of stomach (CMS/HCC) (Primary Dx) 05/15/2024 Orders Only [facility] Oncology and Hematology [facility] [address] [place] [id number] Shravan Laguerre MD 04/11/2024 External Device Data [facility] ABSTRACTION Provider, Abstract 2024 External Device Data [facility]STRACTION Provider, Abstract from Last 3 Months Family History Medical History Relation Name Comments Prostate Cancer Brother Relation Name Status Comments Brother Daughter Alive Father Mother Son 1 Alive Son 2 Alive Social History Tobacco Use Types Packs/Day Years Used Date Smoking Tobacco: Never Smokeless Tobacco: Never Tobacco Cessation:Counseling Given: Not Answered Alcohol Use Standard Drinks/Week Comments Not Currently 0 (1 standard drink = 0.6 oz pur e alcohol) Feeling Safe Answer Date Recorded Are you in a relationship wi th someone who hurts you emotionally and/or physically? No 02/16/2023 Food Insecurity Answer Date Recorded Social/Environmental Concerns No concerns Transportation Needs Answer Date Record ed Social/Environmental Concerns No concerns Housing Stability Answer Date Recorded Social/Environmental Concerns No concerns Utility Needs Answer Date Recorded Social/Environmental Concerns No concerns Sex and Gender Information Value Date Recorded Sex Assigned at Not on file Legal Sex Male 12:07 PM CDT Gender Identity Not on file Sexual Orientation Not on file Last Filed Vital Signs Vital Sign Reading Time Taken Comments Blood Pressure 152/66 02/03/2024 8:36 AM PADDLE 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 MACHINE 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 Pulse 61 02/03/2024 8:36 AM PADDLE DYEING MACHINE OPERATOR Temperature 36.3 C (97.3 F) 02/03/2024 8:36 AM PADDLE DYEING MACHINE OPERATOR Respiratory Rate 16 02/03/2024 8:36 AM PADDLE DYEING MACHINE OPERATOR Oxygen Saturation 98% 02/03/2024 8:36 AM PADDLE DYEING MACHINE OPERATOR Inhaled Oxygen Concentration - - Weight 83.9 kg (185 lb) 02/03/2024 8:36 AM PADDLE DYEING MACHINE OPERATOR Height 167.6 cm (5' 6 ) 03/08/2023 9:38 AM PADDLE DYEING MACHINE OPERATOR Body Mass Index 29.86 03/08/2023 9:38 AM PADDLE DYEING MACHINE OPERATOR Plan of Treatment Upcoming Encounters Date Type Department Care Team (Late st Contact Info) Description 05/22/2024 10:15 AM CDT Office Visit [facility] Oncology and Hematology - [place] [address] [facility] [address] [place] [address] Shravan Laguerre MD [address] [facility] [address] [place] [address] Health Maintenance Due Date Last Done Comments FIT-DNA Q 3 years 1995 FIT/FOBT Q 1 year 1995 Flex Sig/CT Colonography Q 5 years 1995 ZOSTER VACCINE (1 of 2) 2000 DTAP/TDAP/TD VACCINES (2 - T d or Tdap) 07/18/2022 07/18/2012 INFLUENZA VACCINE (#1) 2023 , 01/11/2019, 12/14/2017 COVID-19 Vaccine ( season) 2023, 05/09/2020 Medicare Advantage ([place]) Prev entative Visit/Annual Wellness Visit 03/14/2024 RSV VACCINE (60+ or ) (1 - 1-dose 75+ series) 2025 COLORECTAL SCREENING 08/27/2030 08/27/2020 Colorectal Cancer Screening 08/27/2030 PNEUMOCOCCAL VACCINE 50+ YEARS Completed 09/22/2016 , 09/22/2015 Procedures Procedure Name Priority Date/Time Associated Diagnosis Comments CT ABDOMEN PELVIS W CONTRAST Routine 05/14/2024 2:37 PM PADDLE DYEING MACHINE OPERATOR from Last 3 Months Results * CT ABDOMEN PELVIS W CONTRAST (05/14/2024 2:37 PM PADDLE DYEING MACHINE OPERATOR) Anatomical Region Laterality Modality Abdomen Other us Shravan Laguerre MD CT ORDERABLES Final Result from Last 3 Months Insurance [facility] [id number] [id number] [facility] [id number] Advance Directives For more information, please contact: [phone] * Full Code (Latest Code Status on File) Date Activated Date Inactivated Comments 02/16/2023 1:54 PM 02/18/2023 5:42 PM * Full Code Date Activated Date Inactivated Comments 02/16/2023 9:02 AM 02/16/2023 1:54 PM * Full Code Date Activated Date Inactivated Comments 01/18/2023 10:32 AM 01/18/2023 3:00 PM Care Teams Fruit Farmworker Relationship Specialty Start Date End Date Josephine Shrestha MD [address] [place] [address] PCP - General Family Practice 12/29/22
--- OUTSIDE RECORDS SUMMARY | 2024-05-17 08:55 | XMS_ITS | Encounter Summary ---
Author Organization [facility] Address [address] [place] [address] Care Team Providers Care Vendor Analyst Name Role Phone Josephine Shrestha MD Primary Care Provider [phone] Encounter Details Date Type Department Care Team (Late Contact Info) Description 05/15/2024 Orders Only [facility] Oncology and Hematology - [place] [address] [facility] [address] [place] [address] Shravan Laguerre MD [address] [facility] [address] [place] [address] Social History Tobacco Use Types Packs/Day Years Used Date Smoking Tobacco: Never Smokeless Tobacco: Never Alcohol Use Standard Drinks/Week Comments Not Currently [...] on file Sexual Orientation Not on file documented as of this encounter Plan of Treatment Upcoming Encounters Date Type Department Care Team (Late st Contact Info) Description 05/22/2024 10:15 AM CDT Office Visit [facility] Oncology and Hematology - [place] [address] [facility] [address] [place] [address] Shravan Laguerre MD [address] [facility] [address] [place] [address] documented as of this encounter Procedures Procedure Name Priority Date/Time Associated Diagnosis Comments CT ABDOMEN PELVIS W CONTRAST Routine 05/14/2024 2:37 PM ORACLE APPLICATION CONSULTANT documented in this encounter Results * CT ABDOMEN PELVIS W CONTRAST (05/14/2024 2:37 PM ORACLE APPLICATION CONSULTANT) Anatomical Region Laterality Modality Abdomen Other Shravan Laguerre MD CT ORDERABLES Final Result documented in this encounter Visit Diagnoses Not on filedocumented in this encounter Care Teams Vendor Analyst Relationship Specialty Start Date End Date Josephine Shrestha MD [address] [place] [address] PCP - General Family Practice 12/29/22 documented as of this encounter
--- OUTSIDE RECORDS SUMMARY | 2024-05-17 08:55 | XMS_ITS | Encounter Summary ---
Author Organization [facility] [facility] Address [address] [place] [address] Care Team Providers Care Plasma Processing Centrifuge Operator Name Role Phone Josephine Shrestha MD Primary Care Provider [phone] Encounter Details Date Type Department Care Team (Late Contact Info) Description 05/17/2024 Orders Only [facility] Oncology and Hematology - [place] [address] 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/HCC) (Primary Dx) Social History Tobacco Use Types Packs/Day Years [...] Description 05/22/2024 10:15 AM CDT Office Visit [facility] Oncology and Hematology [facility] [address] [facility] [address] [place] [address] Shravan Laguerre MD [address] [facility] [address] [place] [address] Scheduled Orders Name Type Priority Associated Diagnoses Orde r Schedule COMPREHENSIVE METABOLIC PANEL Lab Routine Malignant gastrointestinal stromal tumor (GIST) of stomach (CMS/HCC) Expected: 05/17/2024, Expires: 05/17/2025 CBC WITH DIFFERENTIAL Lab Routine Malignant gastrointestinal stromal tumor (GIST) of stomach (CMS/HCC) Expected: 05/17/2024, Expires: 05/17/2025 IMMUNOGLOBULINS IGG IGA IGM Lab Routine Malignant gastrointestinal stromal tumor (GIST) of stomach (CMS/HCC) Expected: 05/17/2024, Expires: 05/17/2025 KAPPA/LAMBDA, FREE LIGHT CHAINS Lab Routine Malignant gastrointestinal stromal tumor (GIST) of stomach (CMS/HCC) Expected: 05/17/2024, Expires: 05/17/2025 PROTEIN ELECTROPHORESIS W/REFLEX,SERUM Lab Routine Malignant gastrointestinal stromal tumor (GIST) of stomach (CMS/HCC) Expected: 05/17/2024, Expires: 05/17/2025 documented as of this encounter Visit Diagnoses Diagnosis Malignant gastrointestinal stromal tumor (GIST) of stomach (CMS/HCC)- Primary documented in this encounter Care Teams Plasma Processing Centrifuge Operator Relationship Specialty Start Date End Date Josephine Shrestha MD [address] [place] [id number] PCP - General Family Practice 12/29/22 documented as of this encounter
--- OUTSIDE RECORDS SUMMARY | 2024-05-17 08:56 | XMS_ITS | Clinical Summary ---
Author Organization [facility] [address] Address [address] [place] [address] Care Team Providers Care Stick Roller Name Role Phone Pasquale Riggins Primary Care Provider [phone] Allergies No known active allergies Medications losartan (COZAAR) 100 mg tablet 1 tablet daily. 12/27/2017 Active metoprolol XL (TOPROL-XL) 25 mg 24 hr tablet 1 tablet daily. 10/11/2017 Active indapamide (LOZOL) 2.5 mg tablet 1 tablet daily. 11/01/2017 Active atorvastatin (LIPITOR) 20 mg tablet 1 tablet daily. 11/29/2017 Active Active Problems Problem Noted Date Diagnosed Date Essential hypertension, benign 12/29/2017 Medical History Medical History Date Comments Prostate cancer (HCC) 2015 Hypertension Hyperlipidemia Family History Medical History Relation Name Comments Prostate cancer Brother Stroke Father Hypertension Mother Relation Name Status Comments Brother Father (Age 84) Mother (Age 72) Social History Tobacco Use Types Packs/Day Years Used Date Smoking Tobacco: Never Smokeless Tobacco: Never Alcohol Use Standard Drinks/Week Comments No 0 (1 standard drink = 0.6 oz pur e alcohol) Personal Safety Answer Date Recorded Getting School Help Needed Not on file 05/28 Sex and Gender Information Value Date Recorded Sex Assigned at Not on file Legal Sex Male 10:36 AM CDT Gender Identity Not on file Sexual Orientation Not on file Obstetrics History Last Filed Vital Signs Vital Sign Reading Time Taken Comments Blood Pressure 158/76 12/29/2017 12:48 PM CDT Pulse 60 12/29/2017 12:48 PM CDT Temperature - - Respiratory Rate - - Oxygen Saturation 98% 12/29/2017 12:48 PM CDT Inhaled Oxygen Concentration - - Weight 91.6 kg (202 lb) 12/29/2017 12:48 PM CDT Height 167.6 cm (5' 6 ) 12/29/2017 12:48 PM CDT Body Mass Index 32.6 12/29/2017 12:48 PM CDT Plan of Treatment Not on file Insurance Care Teams Stick Roller Relationship Specialty Start Date End Date Pasquale Riggins PA [address] [place] [address] PCP - General Physician Dining Service Inspector 06/17/20
--- OUTSIDE RECORDS SUMMARY | 2024-05-17 08:56 | XMS_ITS | Continuity of Care Document ---
Author Name [facility] Organization [facility] Care Team Providers Care Belt Turner Name Role Phone [facility] Unavailable Unavailable Problems Combined list of problems from Department of [facility] and [facility] facilities. It does not include entries that were removed or entered in error. Problem Status Onset Date Problem Type Date of Resolution Comments Source Health Examination of Defined Subpopulations (ICD-9-CM V70.5) Active Condition Sep 13 2 Entered By: CHRISTI TAMAYO Comment: AGENT ORANGE REGISTRY EXAM COMPLTED [facility] HTN * (ICD-9-CM 401.9) Active Condition [facility] Hypertrophy (Benign) of Prostate without Urinary obstruction and other lower Uri Active Condition [facility] Personal History of Peptic Ulcer Disease (ICD-9-CM V12.71) Active Condition [facility] Diagnosis: ICD-10-CM H90.3 Sensorineural hearing loss, bilateral Active Diagnosis [facility] Immunizations Combined list of available immunizations from the Department of [facility] and [facility] facilities. Immunization Series Date Given Administered By Site Reaction Lot Number CVX Code Drug Rate Marker Status Comments Source INFLUENZA, HIGH-DOSE, QUADRIVALENT 2019 197 complet ed Partner: [facility]. Administe red by: [facility] Clinician (NPI=Not Provided) . Partner 74 Lot#: [id number] Mfr: sanofi pasteur; Dosage: [id number] ml [facility] INFLUENZA, INJECTABLE, QUADRIVALENT 2018 158 complet ed Partner: [facility]. Administe red by: [facility] Clinician (NPI=Not Provided) . Partner 74 Lot#: [id number] Mfr: SEQIRUS [facility] INFLUENZA, INJECTABLE, QUADRIVALENT, PRESERVATIVE FREE 2017 150 complet ed Partner: [facility]. Administe red by: [facility] (NPI=Not Provided) . Partner 74 Lot#: [id number] Mfr: [employer] [facility] Encounters Combined list of: 1) Encounters from Department of [facility] Affairs facilities going backup to the last 18 months, not all [place] inpatient encounters are included; 2) Encounters from the Department of [facility] facilities going backup to 280 months. Location Location Details Encounter Type Encounter Number Reason For Visit Attending Provider ADM Date DC Date Status Disposition Source [facility] Outpatient Encounter [id number] 05/03 [facility] IMPACTED EAR [place] [id number] Diagnos is: ICD-10- CM H90.3 Sensori neural hearing loss, ESTEBAN Mendoza 07/19 [facility] En[facility] [id number] 12/16 [facility] En[facility] [id number] TRACEY BERRY 03/28 [facility]
--- OUTSIDE RECORDS SUMMARY | 2024-05-17 08:56 | XMS_ITS | Clinical Summary ---
Author Organization [facility] Address [address], [facility] [address] [place] [address] Phone Care Team Providers Care Air Transportation Provider Name Role Phone Hayden Zhong DO Unavailable [phone] Pasquale Riggins Primary Care Provider [phone] Allergies No known active allergies Medications lisinopril (PRINIVIL, ZESTRIL) 10 MG Tablet Take 10 mg by mouth daily. Active metoprolol Succinate (TOPROL-XL) 25 MG TABLET SR 24 HR Take 25 mg by mouth daily. Active atorvastatin (LIPITOR) 20 MG Tablet 08/10/2020 Active sildenafil (REVATIO) 20 MG Tablet Take 20 mg by mouth 3 times daily. Active LEVOTHYROXINE SODIUM PO Take by mouth. Active METFORMIN HCL PO Take by mouth. Active Multiple Vitamin (MULTIVITAMIN PO) Take by mouth. Active Active Problems No known active problems Immunizations Immunization Administration Dates Next Due Covid-19, Mrna, Lnp-s, Pf, 30 Mcg/0.3 Ml Dose (P fizer) 05/30/2020,05/09/2020 Influenza Vaccine, Quadrivalent, PF 12/14/2017 Influenza, High-dose, Quadrivalent 12/19/2019 Influenza, Injectable, Quadrivalent 01/11/2019 Pneumococcal Vaccine - 13 Valent 09/22/2016 Pneumococcal Vaccine Adult - 23 Valent 6 TDAP Vaccine 07/18/2012 Family History Medical History Relation Name Comments Prostate Cancer Brother Diabetes Father Hypertension Mother Relation Name Status Comments Brother Father Mother Social History Tobacco Use Types Packs/Day Years Used Date Smoking Tobacco: Never Smokeless Tobacco: Never Alcohol Use Standard Drinks/Week Comments Yes 0 (1 standard drink = 0.6 oz pur e alcohol) Sexually Active Control Partners Comments Yes Sex and Gender Information Value Date Recorded Sex Assigned at Not on file Legal Sex Male 9:02 PM CDT Gender Identity Not on file Sexual Orientation Not on file Last Filed Vital Signs Vital Sign Reading Time Taken Comments Blood Pressure 136/78 08/22/2020 10:53 AM CDT Pulse 55 08/22/2020 10:53 AM CDT Temperature 36.7 C (98.1 F) 08/22/2020 10:53 AM CDT Respiratory Rate 22 08/22/2020 10:53 AM CDT Oxygen Saturation 98% 08/22/2020 10:53 AM CDT Inhaled Oxygen Concentration - - Weight 90.5 kg (199 lb 8 oz) 08/22/2020 10:53 AM CDT Height 167.6 cm (5' 6 ) 08/22/2020 10:53 AM CDT Body Mass Index 32.2 08/22/2020 10:53 AM CDT Plan of Treatment Health Maintenance Due Date Last Done Comments Hepatitis C Virus (HCV) Screening 1950 Cologuard 2000 Immunochemical Fecal Occult Blood 2000 Zoster Immunization (1 of 2) 2000 Influenza Immunization (#1) 11/13/20230 09/2019, 01/11/2019, 12/14/2017 SARS-COV-2 Immunization ( season) 2023 01/13/2021, 05/30/2020, 05/09/2020 Respiratory Syncytial Virus (RSV) Immunization (Adult) (1 - 1-dose 75+ series) 2025 Colonoscopy 08/27/2030 08/27/2020, 12/25/2015 Colorectal Cancer Screening 08/27/2030 08/27/2020, 12/25/2015 DTaP/Tdap/Td Immunization Discontinued 07/18/2012 Pneumococcal Immunization (5 0+ years) Completed 09/22/2016, 09/22/2015 Pneumococcal Immunization Combined Discontinued 09/22/2016, 09/22/2015 Hepatitis B Immunization Aged Out No longer eligible based on patient's age to complete this topic Meningococcal Immunization (ACWY) Aged Out No longer eligible based on patient's age to complete this topic Rotavirus Immunization Aged Out No lo nger eligible based on patient's age to complete this topic Procedures Procedure Name Priority Date/Time Associated Diagnosis Comments COLONOSCOPY Routine 08/27/2020 from Last 3 Months or Most Recently Relevant to Health Maintenance Results * COLONOSCOPY (08/27/2020) Hayden Zhong DO PROCEDURE/MINOR SURGICAL ORDERA BLES Final Result from Last 3 Months or Most Recently Relevant to Health Maintenance Insurance MEDICARE C [employer] on file Care Teams Air Transportation Provider Relationship Specialty Start Date End Date Pasquale Riggins, PAC [address] [place] [address] PCP - General Physician Machine Programmer 07/31/20 Hayden Zhong DO Gastroenterology 12/30/15
--- OUTSIDE RECORDS SUMMARY | 2024-05-17 08:56 | XMS_ITS | Referral Summary ---
Author Organization [facility] [address] Address [address] [place] [address] Care Team Providers Care Air Quality Engineer Name Role Phone Pasquale Riggins Primary Care Provider [phone] Allergies No known active allergies Medications losartan (COZAAR) 100 mg tablet 1 tablet daily. 12/27/2017 Active metoprolol XL (TOPROL-XL) 25 mg 24 hr tablet 1 tablet daily. 10/11/2017 Active indapamide (LOZOL) 2.5 mg tablet 1 tablet daily. 11/01/2017 Active atorvastatin (LIPITOR) 20 mg tablet 1 tablet daily. 11/29/2017 Active Active Problems Problem Noted Date Diagnosed Date Essential hypertension, benign 12/29/2017 Social History Tobacco Use Types Packs/Day Years [...] Plan of Treatment Not on file Insurance [facility] MDCR HMO REF [facility] Address: [facility] [address] [place] [address] Care Teams Air Quality Engineer Relationship Specialty Start Date End Date Pasquale Riggins PA [address] [facility] [address] [place], [place] [id number] PCP - General Physician Integration Technician 06/17/20
[2024-05-17 09:02] LABS: Basophils Percent Auto 0.4 % (0.2-1.2); Eosinophils Absolute Auto 0.1 K/mm3 (0-0.3); Eosinophils Percent Auto 1.7 % (0-4.4); Hematocrit 49.6 % (42.0-52.0); Hemoglobin 15.7 g/dL (14.0-18.0); Immature Granulocyte Absolute 0.01 K/mm3 (0.00-0.031); Immature Granulocyte Percent A 0.2 % (0-0.5); Lymphocytes Absolute Auto 1.84 K/mm3 (0.9-3.2); Lymphocytes Percent Auto 34.3 % (18.3-44.2); Mean Corpuscular HGB Conc 31.7 g/dl (32-36); Mean Corpuscular Volume 85.2 fl (80-100); Mean Platelet Volume 12.5 fl (7.4-10.4); Monocytes Absolute Auto 0.4 K/mm3 (0.1-0.6); Monocytes Percent Auto 7.3 % (2.6-8.5); Neutrophils Percent Auto 56.1 % (45.5-73.1); Platelet Count Result 166 k/mm3 (150-375); Red Blood Count 5.82 M/mm3 (4.6-6.20); Red Cell Distribution Width 14.3 % (11.5-14.5); White Blood Count 5.4 K/mm3 (4.5-10.0)
[2024-05-17 12:28] LABS: Immunoglobulin A 229 mg/dL (70-400); Immunoglobulin G 1215 mg/dL (700-1600); Immunoglobulin M 356 mg/dL (40-230)
[2024-05-17 12:33] LABS: Potassium 4.1 mmol/L (3.4-5.0)
[2024-05-17 12:35] LABS: Alanine Aminotransferase 44 U/L (6-50); Albumin Level 4.4 g/dL (3.5-5.1); Alkaline Phosphatase 124 U/L (38-126); Anion Gap 12 mmol/L (4-12); Aspartate Amino Transferase 29 U/L (17-59); Bilirubin,Total 0.5 mg/dL (0.2-1.3); Blood Urea Nitrogen 13 mg/dL (9-20); Calcium 9.9 mg/dL (8.4-10.2); Carbon Dioxide 21 mmol/L (22-30); Chloride 104 mmol/L (98-107); Estimated Glomerular Filt Rate > 60; Glucose 125 mg/dL (65-110); Sodium 137 mmol/L (137-145)
[2024-05-18 14:08] LABS: Protein, Total 7.6 g/dL (6.1-8.1)
[2024-05-18 14:47] LABS: Kappa\\Lambda Light Chains 1.76 (0.26-1.65); Lambda Light Chain 19.8 mg/L (5.7-26.3)
[2024-05-19 10:40] LABS: Albumin 4.3 g/dL (3.8-4.8); Alpha 1 Globulin 0.3 g/dL (0.2-0.3); Alpha 2 Globulin 0.8 g/dL (0.5-0.9); Beta 1 Globulin 0.4 g/dL (0.4-0.6); Gamma Globulin 1.4 g/dL (0.8-1.7)
== END 2024-05-17 08:35 | disposition home or self-care (01) ==
LOC: ANHLAB 08:36
PROVIDERS: PCP Family Medicine; Visit Provider Internal Medicine Hematology & Oncology
DX: C49.A2 Gastrointestinal stromal tumor of stomach (principal)
CPT/HCPCS: 36415; 80053; 82784; 83883; 84155; 84165; 85025

== ENCOUNTER 2024-11-02 07:24 | Outpatient (CLI) | payer MEDICARE, SELFPAY ==
--- OUTSIDE RECORDS SUMMARY | 2024-03-28 05:30 | XMS_ITS | Continuity of Care Document ---
Author Name [facility] Organization [facility] Care Team Providers Care Full Charge Bookkeeper Name Role Phone [facility] Unavailable Unavailable Problems Combined list of problems from Department of [facility] and [facility] facilities. It does not include entries that were removed or entered in error. Problem Status Onset Date Problem Type Date of Resolution Comments Source Health Examination of Defined Subpopulations (ICD-9-CM V70.5) Active Condition Sep 13 2 Entered By: CHRISTI TAMAYO Comment: AGENT ORANGE REGISTRY EXAM COMPLTED [facility] HTN * (ICD-9-CM 401.9) Active Condition [facility] Hypertrophy (Benign) of Prostate without Urinary obstruction and other lower Uri Active Condition [facility] Personal History of Peptic Ulcer Disease (ICD-9-CM V12.71) Active Condition [facility] Diagnosis: ICD-10-CM H90.3 Sensorineural hearing loss, bilateral Active Diagnosis [facility] Immunizations Combined list of available immunizations from the Department of [facility] and [facility] facilities. Immunization Series Date Given Administered By Site Reaction Lot Number CVX Code Drug [employer] Umpire Status Comments Source INFLUENZA, HIGH-DOSE, QUADRIVALENT 2019 197 complet ed HISTORICA L INFORMATI ON - FROM OTHER PROVIDER, Partner: [facility]. Administe red by: [facility] Clinician (NPI=Not Provided) . Partner 74 Lot#: [id number] Mfr: sanofi pasteur; Dosage: [id number] ml [facility] INFLUENZA, INJECTABLE, QUADRIVALENT 2018 158 complet ed 02, Partner: [facility]. Administe red by: [facility] Clinician (NPI=Not Provided) . Partner 74 Lot#: [id number] Mfr: SEQIRUS [facility] DIV[facility] N INFLUENZA, INJECTABLE, QUADRIVALENT, PRESERVATIVE FREE 2017 150 complet ed 02, [facility]: [facility]. Administe red by: [facility] Clinician (NPI=Not Provided) . Partner 74 Lot#: [id number] Mfr: [employer] [facility] Encounters Combined list of: 1) Encounters from Department of [facility] facilities going backup to the last 18 months, not all [place] inpatient encounters are included; 2) Encounters from the Department of [facility] facilities going backup to 280 months. Location Location Details Encounter Type Encounter Number Reason For Visit Attending Provider ADM Date DC Date Status Disposition Source [facility] Outpatient Encounter [id number] 05/03 [facility] REMOVE IMPACTED EAR [place] [id number] Diagnos is: ICD-10- CM H90.3 Sensori neural hearing loss, ESTEBAN Mendoza 07/19 [facility] Outpatient Encounter [id number] 12/16 [facility] Outpatient Encounter [id number] TRACEY BERRY 03/28 [facility]
--- OUTSIDE RECORDS SUMMARY | 2024-11-02 07:26 | XMS_ITS | Clinical Summary ---
Author Organization [facility] Sheryl Rolon Address [address] [address] Care Team Providers Care Health Informatics Advisor Name Role Phone Josephine Shrestha MD Primary Care Provider [phone] Allergies No known active allergies Medications atorvastatin [...] Take 1 Tablet by mouth daily. Active Active Problems No known active problems Resolved Problems Problem Noted Date Diagnosed Date Resolved Date Gastric mass 01/11/2023 03/08/2023 Encounters Date Type Department Care Team Description 10/02/2024 External Device Data [facility] ABSTRACTION Provider, Abstract 09/04/2024 External Device Data [facility] ABSTRACTION Provider, Abstract [...] Sign Reading Time Taken Comments Blood Pressure 136/68 05/22/2024 9:52 AM CDT Pulse 78 05/22/2024 9:52 AM CDT Temperature 36.1 C (97 F) 05/22/2024 9:52 AM CDT Respiratory Rate 16 05/22/2024 9:52 AM CDT Oxygen Saturation 98% 05/22/2024 9:52 AM CDT Inhaled Oxygen Concentration - - Weight 85.9 kg (189 lb 6.4 oz) 05/22/2024 9:52 A M CDT Height 167.6 cm (5' 6) 03/08/2023 9:38 AM CLOTH MERCERIZER BACK TENDER Body Mass Index 30.57 03/08/2023 9:38 AM CLOTH MERCERIZER BACK TENDER Plan of Treatment Upcoming Encounters Date Type Department Care Team (Late st Contact Info) Description 11/30/2024 10:30 AM CDT Office Visit [facility] Oncology and Hematology - [place] [address] [facility] [address] [place] [address] Shravan Laguerre MD [address] [facility] [address] [place] [address] Health Maintenance Due Date Last Done Comments FIT-DNA Q 3 years 1995 FIT/FOBT Q 1 year 1995 Flex Sig/CT Colonography Q 5 years 1995 ZOSTER VACCINE (1 of 2) 2000 DTAP/TDAP/TD VACCINES (2 - T d or Tdap) 07/18/2022 07/18/2012 COVID-19 Vaccine ( season) 2023, 05/09/2020 INFLUENZA VACCINE (#1) 2024 , 01/11/2019, 12/14/2017 RSV VACCINE (60+ or ) (1 - 1-dose 75+ series) 2025 COLORECTAL SCREENING 08/27/2030 08/27/2020 Colorectal Cancer Screening 08/27/2030 PNEUMOCOCCAL VACCINE 50+ YEARS Completed 09/22/2016 , 09/22/2015 Insurance [place] [id number] [place] [id number] Advance Directives For more information, please contact: [phone] * Full Code (Latest Code Status on File) Date Activated Date Inactivated Comments 02/16/2023 1:54 PM 02/18/2023 5:42 PM * Full Code Date Activated Date Inactivated Comments 02/16/2023 9:02 AM 02/16/2023 1:54 PM * Full Code Date Activated Date Inactivated Comments 01/18/2023 10:32 AM 01/18/2023 3:00 PM Care Teams Health Informatics Advisor Relationship Specialty Start Date End Date Josephine Shrestha MD [address] [place] [address] PCP - General Family Practice 12/29/22
--- OUTSIDE RECORDS SUMMARY | 2024-11-02 07:27 | XMS_ITS | Clinical Summary ---
Author Organization [facility] Address [address], [facility] [address] [place] [address] Phone Care Team Providers Care Mechanical Maintenance Engineer Name Role Phone Hayden Zhong DO Unavailable [phone] Pasquale Riggins Primary Care Provider [phone] Allergies No known active allergies Medications lisinopril [...] 10:53 AM CDT Height 167.6 cm (5' 6) 08/22/2020 10:53 AM CDT Body Mass Index 32.2 08/22/2020 10:53 AM CDT Plan of Treatment Health Maintenance Due Date Last Done Comments Hepatitis C Virus (HCV) Screening 1950 Cologuard 1995 Immunochemical Fecal Occult Blood 1995 Zoster Immunization (1 of 2) 2000 SARS-COV-2 Immunization ( season) 2023 01/13/2021, 05/30/2020, 05/09/2020 Influenza Immunization (#1) 11/12/202409/2019, 01/11/2019, 12/14/2017 Respiratory Syncytial Virus (RSV) Immunization (Adult) (1 - 1-dose 75+ series) 2025 Colonoscopy 08/27/2030 08/27/2020, 12/25/2015 Colorectal Cancer Screening 08/27/2030 DTaP/Tdap/Td Immunization Discontinued 07/18/2012 Pneumococcal Immunization (5 0+ years) Completed 09/22/2016, 09/22/2015 Pneumococcal Immunization Combined Discontinued 09/22/2016, 09/22/2015 Hepatitis B Immunization Aged Out No longer eligible based on patient's age to complete this topic Human Papillomavirus (HPV) Immunization Aged Out No longer eligible based [...] Most Recently Relevant to Health [place] [id number] MEDICARE [address] [facility] on file Care Teams Mechanical Maintenance Engineer Relationship Specialty Start Date End Date Pasquale Riggins, PAC [address] [place] [address] PCP - General Physician Psychotherapist Counselor 07/31/20 Hayden Zhong DO Gastroenterology 12/30/15
--- NOTE | 2024-11-02 07:45 | ECHO_ITS ---
Patient Info Name: Yonathan Pineda Age: 74 years : 1950 Gender: Male Ht: 66 in Wt: 185 lbs BSA: 2.00 m2 HR: 51 bpm BP: 163 / 85 mmHg Technical Quality: Good Exam Date: 11/02/2024 8:11 AM Patient Status: O Admit Date: 11/02/2024 Exam Type: CA echo doppler color flow Complete two-dimensional, color flow and Doppler transthoracic echocardiogram is performed. Food Processor: Chiquita Avila Attending Provider: Josephine Shrestha Summary 1. Complete two-dimensional, color flow and Doppler transthoracic echocardiogram is performed. 2. Left ventricular chamber dimension is normal. 3. Left ventricular systolic function is normal, estimated at 65-70. 4. There is moderate concentric increased left ventricular wall thickness. 5. The left ventricular diastolic function is normal. 6. E/e' 9 is minimally elevated. 7. Left atrial chamber dimension is moderately enlarged. 8. There is moderate aortic valve sclerosis. 9. There is very mild aortic valve stenosis with a peak velocity of 202 cm/s, mean gradient of 9 mmHg, and aortic valve area of 2.3 cm2. 10. There is mild mitral valve regurgitation. 11. There is trace tricuspid valve regurgitation. Left Ventricle E/e' 9 is minimally elevated. Left ventricular chamber dimension is normal. Left ventricular systolic function is normal, estimated at 65-70. There is moderate concentric increased left ventricular wall thickness. The left ventricular diastolic function is normal. Right Ventricle Right ventricular chamber dimension is normal. Right ventricular systolic function is normal and with normal TAPSE 1.8 cm. Left Atria Left atrial chamber dimension is moderately enlarged. Right Atria Right atrial chamber dimension is normal. Aortic Valve The aortic valve is trileaflet. There is moderate aortic valve sclerosis. There is very mild aortic valve stenosis with a peak velocity of 202 cm/s, mean gradient of 9 mmHg, and aortic valve area of 2.3 cm2. There is no aortic valve regurgitation. Pulmonic Valve There is no pulmonic regurgitation. Mitral Valve There is no mitral valve stenosis. There is mild mitral valve regurgitation. Tricuspid Valve There is trace tricuspid valve regurgitation. RVSP is not measured due to an inadequate TR jet. Pericardium/Pleural There is no pericardial effusion. Inferior Vena Cava Normal inferior vena cava with >50% collapse upon inspiration consistent with normal right atrial pressure, 5 mmHg. Aorta The aortic root size at the sinus of Valsalva is normal. Left Ventricular Outflow Tract Name Value Normal LVOT 2D LVOT Diameter 2.0 cm LVOT Doppler LVOT Peak Velocity 120 cm/s LVOT Peak Gradient 6 mmHg LVOT Mean Gradient 4 mmHg LVOT VTI 39 cm LVOT VTI/AV VTI Ratio 0.7 LVOT Stroke Volume 126 ml LVOT CO 6.3 l/min LVOT CI 3.2 l/min/m2 Pulmonic Valve Name Value Normal RVOT Doppler RVOT Peak Velocity 68 cm/s RVOT Peak Gradient 2 mmHg PV Doppler PV Peak Velocity 108 cm/s PV Peak Gradient 5 mmHg Mitral Valve Name Value Normal MV Diastolic Function MV E Peak Velocity 88 cm/s MV A Peak Velocity 78 cm/s MV E/A 1.1 MV Decel Time (PW) 228 ms MV Annular TDI MV E/e' (Septal) 12.3 MV E/e' (Lateral) 8.1 MV E/e' (Average) 10.2 Tricuspid Valve Name Value Normal Estimated PAP/RSVP RA Pressure 5 mmHg <=5 Aortic Valve Name Value Normal AV Doppler AV Peak Velocity 202 cm/s AV Peak Gradient 15 mmHg AV Mean Gradient 9 mmHg AV VTI 56 cm AV Area (Cont Eq VTI) 2.3 cm2 >=3.0 AV Area (Cont Eq Kamar) 1.9 cm2 AV DI (Kamar) 0.60 AV Regurgitation 2D LVOT Area 3.2 cm2 Ventricles Name Value Normal LV Dimensions 2D/MM IVS Diastolic Thickness (2D) 1.2 cm 0.6-1.0 LVID Diastole (2D) 4.3 cm 4.2-5.8 LVIW Diastolic Thickness (2D) 1.1 cm 0.6-1.0 LVID Systole (2D) 2.8 cm 2.5-4.0 LVOT Diameter 2.0 cm LV Mass (2D Cubed) 165.30 g 88.00-224.00 LV Mass Index (2D Cubed) 83 g/m2 49-115 Relative Wall Thickness (2D) 0.50 <=0.42 LV Fractional Shortening/Ejection Fraction 2D/MM LV Fractional Shortening (2D) 34 % 25-43 LV EF (2D Teichholz) 64 % LV Diastolic Volume (4C MOD) 100 ml LV EF (4C MOD) 68 % LV Diastolic Volume (2C MOD) 128 ml LV EF (2C MOD) 66 % LV Diastolic Volume (BP MOD) 114 ml 62-150 LV Diastolic Volume Index (BP MOD) 57 ml/m2 34-74 LV Systolic Volume (BP MOD) 38 ml 21-61 LV Systolic Volume Index (BP MOD) 19 ml/m2 11-31 LV EF (BP MOD) 67 % 52-72 LV Diastolic Length (4C) 7.7 cm LV Systolic Length (4C) 6.4 cm LV Stroke Volume (4C MOD) 68 ml Atria Name Value Normal LA Dimensions LA Volume (4C A-L) 46 ml LA Volume (BP A-L) 46 ml RA Dimensions RA Systolic Major Florence Length (4C) 5.2 cm 2.1-2.7 RA Area (4C) 11.8 cm2 <=18.0 Report Signatures
== END 2024-11-02 07:25 | disposition home or self-care (01) ==
PROVIDERS: PCP Family Medicine; Visit Provider Family Medicine
DX: R01.1 Cardiac murmur, unspecified (principal); I10 Essential (primary) hypertension; I34.0 Nonrheumatic mitral (valve) insufficiency
CPT/HCPCS: 93306

== ENCOUNTER 2024-11-15 08:46 | Outpatient (CLI) | payer MEDICARE, SELFPAY ==
--- OUTSIDE RECORDS SUMMARY | 2024-11-15 08:53 | XMS_ITS | Encounter Summary ---
Author Organization [facility] Address [address] [place] [address] Care Team Providers Care Parts Sales Manager Name Role Phone Josephine Shrestha MD Primary Care Provider [phone] Encounter Details Date Type Department Care Team (Late st Contact Info) Description 11/13/2024 External Device Data STL ABSTRACTION Provider, Abstract NO ADDRESS ON FILE Social History Tobacco Use Types Packs/Day Years [...] Description 11/30/2024 10:30 AM CDT Office Visit [facility] Oncology and Hematology - [place] [address] [facility] [address] [place] [address] Shravan Laguerre MD [address] [facility] [address] [place] [address] documented as of this encounter Visit Diagnoses Not on filedocumented in this encounter Care Teams Parts Sales Manager Relationship Specialty Start Date End Date Josephine Shrestha MD [address] [place] [address] PCP - General Family Practice 12/29/22 documented as of this encounter
--- OUTSIDE RECORDS SUMMARY | 2024-11-15 08:53 | XMS_ITS | Clinical Summary ---
Author Organization [facility] Sheryl Rolon Address [address] [place] [address] Care Team Providers Care Roustabout Name Role Phone Josephine Shrestha MD Primary Care Provider Allergies No known active allergies Medications atorvastatin [...] Encounters Date Type Department Care Team Description 11/13/2024 External Device Data STL ABSTRACTION Provider, Abstract 10/02/2024 External Device Data STL ABSTRACTION Provider, [...] 167.6 cm (5' 6) 03/08/2023 9:38 AM DIRECTOR BUSINESS MANAGEMENT Body Mass Index 30.57 03/08/2023 9:38 AM DIRECTOR BUSINESS MANAGEMENT Plan of Treatment Upcoming Encounters Date Type Department Care Team (Late st Contact Info) Description 11/30/2024 10:30 AM CDT Office Visit [facility] Oncology and Hematology - [place] [address] [place] [address] Shravan Laguerre MD [address] [facility] [address] [place] [address] Health Maintenance Due Date Last Done Comments FIT-DNA Q 3 years 1995 FIT/FOBT Q 1 year 1995 Flex Sig/CT Colonography Q 5 years 1995 ZOSTER VACCINE (1 of 2) 2000 DTAP/TDAP/TD VACCINES (2 - T d or Tdap) 07/18/2022 07/18/2012 Medicare Advantage (ID) Prev entative Visit/Annual Wellness Visit 03/14/2024 INFLUENZA VACCINE (#1) 2024 , 01/11/2019, 12/14/2017 COVID-19 Vaccine ( season) 2024, 05/09/2020 RSV VACCINE (60+ or ) (1 - 1-dose 75+ series) 2025 COLORECTAL SCREENING 08/27/2030 08/27/2020 Colorectal Cancer Screening 08/27/2030 PNEUMOCOCCAL VACCINE 50+ YEARS Completed 09/22/2016 , 09/22/2015 Insurance [facility] Address: [address] [address] [place] [id number] [place] [id number] Advance Directives For more information, please contact: [phone] * Full Code (Latest Code Status on File) Date Activated Date Inactivated Comments 02/16/2023 1:54 PM 02/18/2023 5:42 PM * Full Code Date Activated Date Inactivated Comments 02/16/2023 9:02 AM 02/16/2023 1:54 PM * Full Code Date Activated Date Inactivated Comments 01/18/2023 10:32 AM 01/18/2023 3:00 PM Care Teams Roustabout Relationship Specialty Start Date End Date Josephine Shrestha MD [address] [place] [address] PCP - General Family Practice 12/29/22
--- OUTSIDE RECORDS SUMMARY | 2024-11-15 08:53 | XMS_ITS | Clinical Summary ---
Author Organization [facility] [address] Address [address] [place] [address] Care Team Providers Care Watch Dial Stoner Name Role Phone Pasquale Riggins Primary Care Provider [phone] Allergies No known active allergies Medications losartan [...] 12:48 PM CDT Height 167.6 cm (5' 6) 12/29/2017 12:48 PM CDT Body Mass Index 32.6 12/29/2017 12:48 PM CDT Plan of Treatment Not on file Insurance [facility] MDCR HMO REF Care Teams Watch Dial Stoner Relationship Specialty Start Date End Date Pasquale Riggins PA [address] [place] [address] PCP - General Physician Accounting Specialist 06/17/20
--- OUTSIDE RECORDS SUMMARY | 2024-11-15 08:53 | XMS_ITS | Encounter Summary ---
Author Organization [facility] Healthcare Address [address] [place] [address] Care Team Providers Care Sap Mobility Architect Name Role Phone John Mulligan MD Primary Care Provider + [phone] Suzanna Swenson MD Primary Care Provider + [phone] Pasquale Riggins Primary Care Provider [phone] Encounter Details Date Type Department Care Team (Late st Contact Info) Description 12/07/2017 Orders Only [facility] Health Information Management [address] [place] [address] Scanning, Provider Social History Tobacco Use Types Packs/Day Years Used Date Smoking Tobacco: Never Assessed Sex and Gender Information Value Date Recorded Sex Assigned at Not on file Legal Sex Male 10:36 AM CDT Gender Identity Not on file Sexual Orientation Not on file documented as of this encounter Plan of Treatment Not on file documented as of this encounter Procedures Procedure Name Priority Date/Time Associated Diagnosis Comments CARDIOLOGY DOCUMENT SCAN 12/07/2017 documented in this encounter Results * Cardiology Document Scan (12/07/2017) Anatomical Region Laterality Modality Other us Provider Scanning CV CARDIAC SERVICES PROCEDURES Final Result documented in this encounter Visit Diagnoses Not on filedocumented in this encounter Care Teams Sap Mobility Architect Relationship Specialty Start Date End Date John Mulligan MD [address] [place] [address] PCP - General Family Medicine 12/28/17 12/28/17 Suzanna Swenson MD [address] [place] [address] PCP - General Family Practice 12/29/17 06/16/20 Pasquale Riggins PA [address] [place] [address] PCP - General Physician Environmental Monitoring Technician 06/17/20 documented as of this encounter
[2024-11-15 09:12] LABS: Hematocrit 47.4 % (42.0-52.0); Hemoglobin 15.2 g/dL (14.0-18.0); Immature Granulocyte Percent A 0.2 % (0-0.5); Lymphocytes Absolute Auto 1.93 K/mm3 (0.9-3.2); Mean Corpuscular HGB Conc 32.1 g/dl (32-36); Mean Corpuscular Hemoglobin 27.3 pg (26-34); Mean Corpuscular Volume 85.3 fl (80-100); Nucleated Red Blood Cells Absolute Auto 0.000 K/mm3 (0.0-0.012); Nucleated Red Blood Cells Perc 0.0 % (0.0-0.2); Platelet Count Result 173 k/mm3 (150-375); Red Blood Count 5.56 M/mm3 (4.6-6.20); White Blood Count 5.1 K/mm3 (4.5-10.0)
[2024-11-15 10:09] LABS: Alanine Aminotransferase 31 U/L (6-50); Albumin Level 4.7 g/dL (3.5-5.1); Alkaline Phosphatase 115 U/L (38-126); Anion Gap 11 mmol/L (4-12); Aspartate Amino Transferase 29 U/L (17-59); Bilirubin,Total 0.4 mg/dL (0.2-1.3); Blood Urea Nitrogen 16 mg/dL (9-20); Calcium 10.0 mg/dL (8.4-10.2); Carbon Dioxide 25 mmol/L (22-30); Chloride 102 mmol/L (98-107); Estimated Glomerular Filt Rate > 60; Glucose 138 mg/dL (65-110); Potassium 4.2 mmol/L (3.4-5.0); Sodium 138 mmol/L (137-145); Total Protein 8.5 g/dL (6.3-8.2)
[2024-11-15 10:17] LABS: Immunoglobulin A 208 mg/dL (70-400); Immunoglobulin G 1231 mg/dL (700-1600); Immunoglobulin M 368 mg/dL (40-230)
[2024-11-16 18:08] LABS: Free Lambda Lt Chains, Serum 19.9 mg/L (5.7-26.3); Kappa/Lambda Ratio, Serum 1.59 (0.26-1.65)
[2024-11-19 11:08] LABS: Albumin 3.8 g/dL (2.9-4.4); Alpha-1-Globulin 0.2 g/dL (0.0-0.4); Alpha-2-Globulin 0.9 g/dL (0.4-1.0); Gamma Globulin 1.5 g/dL (0.4-1.8)
== END 2024-11-15 08:47 | disposition home or self-care (01) ==
LOC: ANHLAB 08:47
PROVIDERS: PCP Family Medicine; Visit Provider Internal Medicine Hematology & Oncology
DX: R77.9 Abnormality of plasma protein, unspecified (principal)
CPT/HCPCS: 36415; 80053; 82784; 83521; 84155; 84165; 85025

== ENCOUNTER 2024-11-22 08:26 | Outpatient (CLI) | payer MEDICARE, SELFPAY ==
--- NOTE | ~2024-11-22 | CT_ITS ---
EXAMINATION: CT abdomen pelvis w con DATE: 11/22/2024 09:05 INDICATION: Malignant gastrointestinal stromal tumor of stomach. TECHNIQUE: Computed tomography (CT) of the abdomen and pelvis was performed with 100 mL Omnipaque 350 intravenous contrast. Automated exposure control and iterative reconstruction technique were employed. The dose-length product was 638.06 mGy-cm. COMPARISON: CT abdomen and pelvis 05/14/2024 FINDINGS: The visualized portions of lung bases demonstrate mild atelectasis. There is mild bronchiectasis bilaterally. Calcified pulmonary nodules and calcified hilar lymph nodes are consistent with old granulomatous disease. No pleural effusion. The heart size is normal. There are coronary artery billie cifications. No pericardial effusion. Calcifications in the liver and spleen are consistent with old granulomatous disease. The gallbladder is normal in size. The pancreas and adrenal glands are normal. There are cysts in the kidneys measuring up to 3.6 cm on the left. There are bilateral kidney masses containing fat measuring up to 14 mm on the left, consistent with angiomyolipomas. There is cortical thinning of the kidneys. The prostate is moderately enlarged. There are brachytherapy seeds in the prostate. There is diverticulosis of the colon without evidence of diverticulitis. There are no dilated loops of bowel. The appendix is normal. There are surgical changes of the proximal stomach. There a re no pathologically enlarged lymph nodes. There is no free intraperitoneal fluid. There is mild thoracic and lumbar spondylosis. IMPRESSION: 1. No evidence of metastatic disease. Reviewed, dictated and finalized at location E.
--- OUTSIDE RECORDS SUMMARY | 2024-11-22 08:51 | XMS_ITS | Encounter Summary ---
Author Organization [facility] [email or web address] [facility] Address [address] [place] [address] Care Team Providers Care Sap Solution Manager Consultant Name Role Phone Josephine Shrestha MD Primary Care Provider [phone] Encounter Details Date Type Department Care Team (Late Contact Info) Description 11/20/2024 Orders Only [facility] Oncology and Hematology - [place] [address] [facility] [address] [place] [address] Shravan Laguerre MD [address] [facility] [address] [place] [address] Social History Tobacco Use Types [...] Description 11/30/2024 10:30 AM CDT Office Visit [facility] Oncology and Hematology - [place] [address] [facility] [address] [place] [address] Shravan Laguerre MD [address] [facility] [address] [place] [address] documented as of this encounter Procedures Procedure Name Priority Date/Time Associated Diagnosis Comments PROTEIN ELECTROPHORESIS, CSF Routine 11/15/2024 7:50 AM CDT documented in this encounter Results * PROTEIN ELECTROPHORESIS, CSF (11/15/2024 7:50 AM CDT) Cerebrospinal fluid CEREBROSPINAL FLUID / Unknown Shravan Laguerre MD BODY FLUIDS AND STOOLS Final Re sult documented in this encounter Visit Diagnoses Not on filedocumented in this encounter Care Teams Sap Solution Manager Consultant Relationship Specialty Start Date End Date Josephine Shrestha MD [address] [place] [address] PCP - General Family Practice 12/29/22 documented as of this encounter
--- OUTSIDE RECORDS SUMMARY | 2024-11-22 08:51 | XMS_ITS | Clinical Summary ---
Author Organization [facility] [address] Address [address] [place] [address] Care Team Providers Care Assembly Mechanic Name Role Phone Pasquale Riggins Primary Care Provider [phone] Allergies No known active allergies Medications losartan [...] Plan of Treatment Not on file Insurance [facility] MDCR HMO REF Care Teams Assembly Mechanic Relationship Specialty Start Date End Date Pasquale Riggins PA [address] [place] [address] PCP - General Physician Provider Education Specialist 06/17/20
--- OUTSIDE RECORDS SUMMARY | 2024-11-22 08:51 | XMS_ITS | Encounter Summary ---
Author Organization [facility] Healthcare Address [address] [place] [address] Care Team Providers Care Pilot Supervisor Name Role Phone John Mulligan MD Primary Care Provider + [phone] Suzanna Swenson MD Primary Care Provider + [phone] Pasquale Riggins Primary Care Provider [phone] Encounter Details Date Type Department Care Team (Late st Contact Info) Description 12/07/2017 Orders Only [facility] Health Information Management [address] [place] [address] Scanning, Provider Social History Tobacco Use Types [...] on filedocumented in this encounter Care Teams Pilot Supervisor Relationship Specialty Start Date End Date John Mulligan MD [address] [place] [address] PCP - General Family Medicine 12/28/17 12/28/17 Suzanna Swenson MD [address] [place] [address] PCP - General Family Practice 12/29/17 06/16/20 Pasquale Riggins PA [address] [place] [address] PCP - General Physician French Teacher 06/17/20 documented as of this encounter
--- OUTSIDE RECORDS SUMMARY | 2024-11-22 08:51 | XMS_ITS | Encounter Summary ---
Author Organization [facility] Address [address] [place] [address] Care Team Providers Care Economics Lecturer Name Role Phone Josephine Shrestha MD Primary Care Provider [phone] Encounter Details Date Type Department Care Team (Late Contact Info) Description 11/19/2024 Orders Only [facility] Oncology and Hematology - [place] [address] [facility] [address] [place] [address] Shravan Laguerre MD [address] [facility] [address] [place] [address] Social History Tobacco Use Types [...] Description 11/30/2024 10:30 AM CDT Office Visit [facility] Oncology and Hematology - [place] [address] [facility] [address] [place] [address] Shravan Laguerre MD [address] [facility] [address] [place] [address] documented as of this encounter Procedures Procedure Name Priority Date/Time Associated Diagnosis Comments KAPPA/LAMBDA LIGHT CHAINS Routine 11/15/2024 12:53 PM CDT documented in this encounter Results * KAPPA/LAMBDA, FREE LIGHT CHAINS (11/15/2024 12:53 PM CDT) Blood Shravan Laguerre MD CHEMISTRY ORDERABLES Final Resu lt documented in this encounter Visit Diagnoses Not on filedocumented in this encounter Care Teams Economics Lecturer Relationship Specialty Start Date End Date Josephine Shrestha MD [address] [place] [address] PCP - General Family Practice 12/29/22 documented as of this encounter
--- OUTSIDE RECORDS SUMMARY | 2024-11-22 08:51 | XMS_ITS | Clinical Summary ---
Author Organization [facility] Address [address], [facility] [address] [place] [address] Phone Care Team Providers Care Sand Digger Name Role Phone Hayden Zhong DO Unavailable [phone] Pasquale Riggins Primary Care Provider [phone] Allergies No known active allergies Medications lisinopril [...] 1995 Zoster Immunization (1 of 2) 2000 Influenza Immunization (#1) 11/12/202409/2019, 01/11/2019, 12/14/2017 SARS-COV-2 Immunization ( season) 2024 01/13/2021, 05/30/2020, 05/09/2020 Respiratory Syncytial Virus (RSV) [...] Relevant to Health [place] [id number] MEDICARE C [facility] on file Care Teams Sand Digger Relationship Specialty Start Date End Date Pasquale Riggins, PAC [address] [place] [address] PCP - General Physician Project Manager Retail 07/31/20 Hayden Zhong DO Gastroenterology 12/30/15
--- OUTSIDE RECORDS SUMMARY | 2024-11-22 08:51 | XMS_ITS | Clinical Summary ---
Author Organization [facility] Sheryl Rolon Address [address] [facility] [place] [address] Care Team Providers Care Customer Logistics Manager Name Role Phone Josephine Shrestha MD Primary Care Provider [phone] Allergies No known active allergies Medications atorvastatin [...] Encounters Date Type Department Care Team Description 11/20/2024 Orders Only [facility] Oncology and Hematology - [place] [address] [place] [address] Shravan Laguerre MD 11/19/2024 Orders Only [facility] Oncology and Hematology - [place] [address] [place] [address] Shravan Laguerre MD 11/15/2024 Orders Only [facility] Oncology and Hematology - [place] [address] [place], [place] [address] Shravan Laguerre MD 11/13/2024 External Device Data STL ABSTRACTION Provider, [...] 167.6 cm (5' 6) 03/08/2023 9:38 AM OPERATIONS VICE PRESIDENT Body Mass Index 30.57 03/08/2023 9:38 AM OPERATIONS VICE PRESIDENT Plan of Treatment Upcoming Encounters Date Type Department Care Team (Late st Contact Info) Description 11/30/2024 10:30 AM CDT Office Visit [facility] Oncology and Hematology - [place] [address] [facility] [address] [place] [address] Shravan Laguerre MD [address] [facility] [address] [place] [address] Health Maintenance Due Date Last Done Comments FIT-DNA Q 3 years 1995 FIT/FOBT Q 1 year 1995 Flex Sig/CT Colonography Q 5 years 1995 ZOSTER VACCINE (1 of 2) 2000 DTAP/TDAP/TD VACCINES (2 - T d or Tdap) 07/18/2022 07/18/2012 INFLUENZA VACCINE (#1) 2024 , 01/11/2019, 12/14/2017 COVID-19 Vaccine ( season) 2024, 05/09/2020 RSV VACCINE (60+ or ) (1 - 1-dose 75+ series) 2025 COLORECTAL SCREENING 08/27/2030 08/27/2020 Colorectal Cancer Screening 08/27/2030 PNEUMOCOCCAL VACCINE 50+ YEARS Completed 09/22/2016 , 09/22/2015 Procedures Procedure Name Priority Date/Time Associated Diagnosis Comments KAPPA/LAMBDA LIGHT CHAINS Routine 2024 12:53 PM CDT COMPREHENSIVE METABOLIC PANEL Routine 11/15/2024 11:44 AM CDT PROTEIN ELECTROPHORESIS, CSF Routine 11/15/2024 7:50 AM CDT from Last 3 Months Results * KAPPA/LAMBDA, FREE LIGHT CHAINS (11/15/2024 12:53 PM CDT) Blood Shravan Laguerre MD CHEMISTRY ORDERABLES Final Resu lt * COMPREHENSIVE METABOLIC PANEL (11/15/2024 11:44 AM CDT) Blood us Shravan Laguerre MD CHEMISTRY ORDERABLES Final Resu lt * PROTEIN ELECTROPHORESIS, CSF (11/15/2024 7:50 AM CDT) Cerebrospinal fluid CEREBROSPINAL FLUID / Unknown Shravan Laguerre MD BODY FLUIDS AND STOOLS Final Re sult from Last 3 Months Insurance Advance Directives For more information, please contact: [phone] * Full Code (Latest Code Status on File) Date Activated Date Inactivated Comments 02/16/2023 1:54 PM 02/18/2023 5:42 PM * Full Code Date Activated Date Inactivated Comments 02/16/2023 9:02 AM 02/16/2023 1:54 PM * Full Code Date Activated Date Inactivated Comments 01/18/2023 10:32 AM 01/18/2023 3:00 PM Care Teams Customer Logistics Manager Relationship Specialty Start Date End Date Josephine Shrestha MD [address] [place] [address] PCP - General Family Practice 12/29/22
== END 2024-11-22 08:27 | disposition home or self-care (01) ==
PROVIDERS: PCP Family Medicine; Visit Provider Internal Medicine Hematology & Oncology
DX: C49.A2 Gastrointestinal stromal tumor of stomach (principal)
CPT/HCPCS: 74177; Q9967